=== PATIENT | female | born 1960 | race Caucasian/White ===

== ENCOUNTER 2017-11-13 02:16 | Emergency (ER) | payer BC, OTHER ==
[~2017-11-13] VITALS: Ht 165.1 cm; Wt 53.0 kg
[~2017-11-13 02:16] MED LIST: ALBU6.7H INH; ATOR10 PO; DOXY100T PO; PRED20 PO
[2017-11-13] MEDS ORDERED: LOSA25TA PO (02:22)
[2017-11-13 02:23] VITALS: BP 153/84; PULSE 98; RESP 16; TEMP 97.8; O2SAT 99
[2017-11-13 02:31] VITALS: PULSE 99; RESP 18; O2SAT 100
[2017-11-13 02:34] VITALS: O2SAT 100
[2017-11-13 02:50] LABS: BASOPHIL % 0.5 % (0.0-2.0); EOSINOPHIL % 0.5 % (0.0-4.0); HEMOGLOBIN 15.6 GM/DL (11.6-15.3); LYMPH % 14.9 % (9.0-44.0); LYMPHOCYTE # 1.4 TH/MM3 (1.0-4.8); MEAN CELL VOLUME 99.9 FL (80.0-100.0); MEAN CORPUSCULAR HEMOGLOBIN 35.4 PG (27.0-34.0); MEAN CORPUSCULAR HGB CONC 35.5 % (32.0-36.0); MEAN PLATELET VOLUME 6.6 FL (7.0-11.0); MONO % 11.7 % (0.0-8.0); MONOCYTE # 1.1 TH/MM3 (0-0.9); NEUT % 72.4 % (16.0-70.0); PLATELET COUNT 288 TH/MM3 (150-450); RED BLOOD COUNT 4.41 MIL/MM3 (4.00-5.30); RED CELL DISTRIBUTION WIDTH 13.2 % (11.6-17.2); WHITE BLOOD COUNT 9.7 TH/MM3 (4.0-11.0)
--- NOTE | 2017-11-13 02:55 | RADRPT ---
EXAM DATE/TIME: 11/13/2017 02:39 [place] COMPARISON: No previous studies available for comparison. INDICATIONS : Chest pain. MEDICAL HISTORY : Hiatal hernia. Hypertension SURGICAL HISTORY : None. ENCOUNTER: Initial ACUITY: 4 - 6 days PAIN SCORE: 8/10 LOCATION: Left chest posterior FINDINGS: A single view of the chest demonstrates the lungs to be symmetrically aerated without evidence of mas s, infiltrate or effusion. The cardiomediastinal contours are unremarkable. Osseous structures are intact. CONCLUSION: No acute disease. Madhu Frazier Jr., MD on November 13, 2017 at 2:53 Board Certified Radiologist. This report was verified electronically.
[2017-11-13 03:00] LABS: BICARBONATE 27.8 MEQ/L (21.0-32.0); BLOOD UREA NITROGEN 6 MG/DL (7-18); CALCIUM 9.2 MG/DL (8.5-10.1); CHLORIDE 98 MEQ/L (98-107); CREATININE 0.63 MG/DL (0.50-1.00); GLOMERULAR FILTRATION RATE 97 ML/MIN (>89); GLUCOSE,RANDOM 115 MG/DL (74-106); SODIUM (NA) 133 MEQ/L (136-145)
[2017-11-13] MEDS ORDERED: NITROGLYCERIN 2% OINT 1 GM PACKET TOPICAL ONE (03:00)
[2017-11-13] MEDS ORDERED: FAMOTIDINE 20 MG/2 ML VIAL IV PUSH SCH (03:00)
[2017-11-13] MEDS ORDERED: ASPIRIN 81 MG CHEW TAB CHEW ONE (03:00)
[2017-11-13 03:04] LABS: TROPONIN I LESS THAN 0.02 NG/ML (0.02-0.05)
[2017-11-13 03:14] VITALS: BP 156/104; PULSE 91; RESP 18; O2SAT 99
[2017-11-13 03:18] LABS: ALBUMIN 3.9 GM/DL (3.4-5.0); ALT (GPT) 17 U/L (10-53); AST (GOT) 16 U/L (15-37); DIRECT BILIRUBIN ADULT 0.2 MG/DL (0.0-0.2)
[2017-11-13 03:19] LABS: ALKALINE PHOSPHATASE 100 U/L (45-117); INDIRECT BILIRUBIN 0.7 MG/DL (0.0-0.8); TOTAL BILIRUBIN ADULT 0.9 MG/DL (0.2-1.0); TOTAL PROTEIN 7.6 GM/DL (6.4-8.2)
[2017-11-13] MEDS ORDERED: KETOROLAC TROMETHAMINE 30 MG/ML (IVP) VIAL IV PUSH ONE (03:30)
--- NOTE | 2017-11-13 03:48 | PD ---
HPI Chief Complaint: Chest Pain Time Seen by Provider: 02:35 Travel History International Travel<30 days: No Contact w/Intl Traveler<30days: No Traveled to known affect area: No History of Present Illness HPI Patient is a 57-year-old female who is coming to the ER saying that she has been having epigastric pain and left shoulder pain. She thinks it is related to stress she says she works 7 days a week. She says she is worked every day since October 09 and that day she took off because of the day her brother . She denies pressure-like pain she says it is localized to her left scapula area reproducible made worse with movement as well as lying down. She also says that she did have epigastric pain off and on over the last few days but she says she ate a whole thing of cashews and there is salty and then she knows she has epigastric pain. She takes omeprazole to help alleviate the symptoms which helped mildly in the ER she has no epigastric pain it is all left shoulder pain. She has left bundle branch block on her EKG at a rate of 96 she has no history or knowledge of prior left bundle branch block but she denies any heaviness or left chest pain. She is convinced this is all stress related shoulder pain she took a 1 Motrin with minimal relief and then that wore off and she says the pain continues she feels it is related to work stress as well as physical injury. She has not seen another doctor for this she has not seen a doctor in many years prior to coming to the ER tonight for this left shoulder. [facility] Past Medical History Hypertension: Yes Influenza Vaccination: No Past Surgical History Mastectomy: Yes (RIGHT BREAST) Social History Alcohol Use: Yes Tobacco Use: Yes Substance Use: No Allergies-Medications (Allergen,Severity, Reaction): Coded Allergies: No Known Allergies (Unverified Adverse Reaction, Unknown, 11/13/17) Reported Meds & Prescriptions Reported Meds & Active Scripts Active Ibuprofen 600 Mg Tab 600 Mg PO Q6H PRN Valium (Diazepam) 5 Mg Tab 5 Mg PO TID PRN Reported Losartan (Losartan Potassium) 25 Mg Tab 25 Mg PO EVERY OTHER DAY Review of Systems Except as stated in HPI: all other systems reviewed are Neg Physical Exam Narrative GENERAL: SKIN: Warm and dry. HEAD: Atraumatic. Normocephalic. EYES: Pupils equal and round. No scleral icterus. No injection or drainage. ENT: No nasal bleeding or discharge. Mucous membranes pink and moist. NECK: Trachea midline. No JVD. CARDIOVASCULAR: Regular rate and rhythm. BACK reproducible Left scaapula area pain RESPIRATORY: No accessory muscle use. Clear to auscultation. Breath sounds equal bilaterally. GASTROINTESTINAL: Abdomen soft, non-tender, nondistended. Hepatic and splenic margins not palpable. MUSCULOSKELETAL: Extremities without clubbing, cyanosis, or edema. No obvious deformities. NEUROLOGICAL: Awake and alert. No obvious cranial nerve deficits. Motor grossly within normal limits. Five out of 5 muscle strength in the arms and legs. Normal speech. PSYCHIATRIC: Appropriate mood and affect; insight and judgment normal. Data Data Last Documented VS Orders Orders Electrocardiogram (11/13/17 02:33) Complete Blood Count With Diff (11/13/17 02:33) Basic Metabolic Panel (Bmp) (11/13/17 02:33) Ckmb (Isoenzyme) Profile (11/13/17 02:33) Troponin I (11/13/17 02:33) Chest, Single Ap (11/13/17 02:33) Iv Access Insert/Monitor (11/13/17 02:33) Ecg Monitoring (11/13/17 02:33) Oxygen Administration (11/13/17 02:33) Oximetry (11/13/17 02:33) Aspirin Chew (Aspirin Chew) (11/13/17 03:00) Nitroglycerin 2% Oint (Nitroglycerin 2% (11/13/17 03:00) Famotidine Inj (Pepcid Inj) (11/13/17 03:00) Hepatic Functional Panel (11/13/17 02:35) Ketorolac Inj (Toradol Inj) (11/13/17 03:30) Ed Discharge Order (11/13/17 06:55) Labs Laboratory Tests Test 11/13/17 02:35 White Blood Count 9.7 TH/MM3 Red Blood Count 4.41 MIL/MM3 Hemoglobin 15.6 GM/DL Hematocrit 44.0 % Mean Corpuscular Volume 99.9 FL Mean Corpuscular Hemoglobin 35.4 PG Mean Corpuscular Hemoglobin Concent 35.5 % Red Cell Distribution Width 13.2 % Platelet Count 288 TH/MM3 Mean Platelet Volume 6.6 FL Neutrophils (%) (Auto) 72.4 % Lymphocytes (%) (Auto) 14.9 % Monocytes (%) (Auto) 11.7 % Eosinophils (%) (Auto) 0.5 % Basophils (%) (Auto) 0.5 % Neutrophils # (Auto) 7.0 TH/MM3 Lymphocytes # (Auto) 1.4 TH/MM3 Monocytes # (Auto) 1.1 TH/MM3 Eosinophils # (Auto) 0.0 TH/MM3 Basophils # (Auto) 0.0 TH/MM3 CBC Comment DIFF FINAL Differential Comment Blood Urea Nitrogen 6 MG/DL Creatinine 0.63 MG/DL Random Glucose 115 MG/DL Total Protein 7.6 GM/DL Albumin 3.9 GM/DL Calcium Level 9.2 MG/DL Alkaline Phosphatase 100 U/L Aspartate Amino Transf (AST/SGOT) 16 U/L Alanine Aminotransferase (ALT/SGPT) 17 U/L Total Bilirubin 0.9 MG/DL Direct Bilirubin 0.2 MG/DL Sodium Level 133 MEQ/L Potassium Level 4.2 MEQ/L Chloride Level 98 MEQ/L Carbon Dioxide Level 27.8 MEQ/L Anion Gap 7 MEQ/L Estimat Glomerular Filtration Rate 97 ML/MIN Indirect Bilirubin 0.7 MG/DL Total Creatine Kinase 84 U/L Troponin I LESS THAN 0.02 NG/ML [facility] Medical Decision Making Medical Screen Exam Complete: Yes Emergency Medical Condition: Yes Medical Record Reviewed: Yes Differential Diagnosis gerd and arthritis vs left chest pain and referred left arm to shoulder pain of ischenmic cardiac disease vs gastritiis GB disease or other Narrative Course Pt has LBBB but no prior EKG in her medical EHR chart that I could find , pt trop negative and GI cocktail and pepcid IV cured her pain and I feel it is gastritis and muscle pain of arm not Ischemic CP and referred pain Diagnosis Primary Impression: Muscle ache Patient Instructions: General Instructions, Muscle Spasm (ED) Scripts Ibuprofen (Ibuprofen) 600 Mg Tab 600 MG PO Q6H Y for Pain/Inflammation, #20 TAB 0 Refills Prov: Balwinder Knox MD 11/13/17 Diazepam (Valium) 5 Mg Tab 5 MG PO TID Y for MUSCLE SPASM, #15 TAB 0 Refills Prov: Balwinder Knox MD 11/13/17 Disposition: 01 DISCHARGE HOME Condition: Good Balwinder Knox MD November 13, 2017 03:48
[2017-11-13 03:53] VITALS: BP 167/70; PULSE 91; RESP 18; O2SAT 100
[2017-11-13 05:13] VITALS: BP 147/67; PULSE 80; RESP 18; O2SAT 99
[2017-11-13] MEDS ORDERED: IBUP-232 PO (06:45)
[2017-11-13] MEDS ORDERED: DIAZ5 PO (06:45)
--- NOTE | 2017-11-13 12:20 | EKG ---
Date Performed: 11/13/2017 Time Performed: 02:32:29 PTAGE: 57 years EKG: Sinus rhythm POSSIBLE LEFT ATRIAL ENLARGEMENT LEFT BUNDLE BRANCH BLOCK ABNORMAL ECG NO PREVIOUS TRACING DOCTOR: Romero Joseph Interpretating Date/Time 11/13/2017 12:17:09
== END 2017-11-13 06:58 | disposition home or self-care (01) ==
LOC: NEPE 02:16
DX: M79.1 Myalgia (principal); I10 Essential (primary) hypertension; Z72.0 Tobacco use
CPT/HCPCS: 71045; 80048; 80076; 82550; 84484; 85025; 93005; 96374; 96375; 99285; J1885

== ENCOUNTER 2017-12-10 02:34 | Emergency (ER) | payer OTHER ==
[~2017-12-10 02:34] MED LIST changes: -ALBU6.7H INH; -ATOR10 PO; +DIAZ5 PO; -DOXY100T PO; +IBUP-232 PO; +LOSA25TA PO; -PRED20 PO
[2017-12-10 02:36] VITALS: BP 130/89; PULSE 152; RESP 27; TEMP 97.2; O2SAT 96
--- NOTE | 2017-12-10 03:52 | PD ---
HPI . Cough Chief Complaint: Respiratory Distress Time Seen by Provider: 03:04 Travel History International Travel<30 days: No Contact w/Intl Traveler<30days: No Traveled to known affect area: No History of Present Illness HPI Patient is a 57-year-old female who suddenly short of breath she is with her who is deteriorating from cirrhosis of the liver he is jaundiced and he is in our ER she went from his room felt short of breath dizzy came to triage and is triaged into the exam room. She smokes cigarettes a pack a day, reports that she feels short of breath when she is walking and then becomes rapidly short of breath feels like the room is spinning , feels dizzy . denies chest pain, denies nausea, no vomiting, no diarrhea, no dysuria.. In the ER she is leaning forward looking short of breath, however her lungs are clear to auscultation on initial exam. no tachypnea , PFSH Past Medical History Cancer: Yes Chemotherapy: Yes Diminished Hearing: No Hypertension: Yes Respiratory: Yes Menopausal: Yes Past Surgical History Mastectomy: Yes (RIGHT BREAST) Social History Alcohol Use: Yes (SOMETIMES) Tobacco Use: Yes Substance Use: No Allergies-Medications (Allergen,Severity, Reaction): Coded Allergies: No Known Allergies (Unverified Adverse Reaction, Unknown, 12/10/17) Reported Meds & Prescriptions Reported Meds & Active Scripts Active Atrovent HFA 12.9 GM Inh (Ipratropium [place]) 17 Mcg/Actuation Aer 2 Puff INH Q6HR PRN Azithromycin 250 Mg Tab 250 Mg PO DIRECTED Take 2 tabs (500 mg) on day 1 then 1 tab daily x 4 days. Ibuprofen 600 Mg Tab 600 Mg PO Q6H PRN Reported Losartan (Losartan Potassium) 25 Mg Tab 25 Mg PO EVERY OTHER DAY Review of Systems Except as stated in HPI: all other systems reviewed are Neg Physical Exam Narrative GENERAL: appears SOB leaning forward in chair in Exam room SKIN: Warm and dry. HEAD: Atraumatic. Normocephalic. EYES: Pupils equal and round. No scleral icterus. No injection or drainage. ENT: No nasal bleeding or discharge. Mucous membranes pink and moist. NECK: Trachea midline. No JVD. CARDIOVASCULAR: Regular rate and rhythm. RESPIRATORY: No accessory muscle use. Clear to auscultation. Breath sounds equal bilaterally. no wheeze heard .. GASTROINTESTINAL: Abdomen soft, non-tender, nondistended. Hepatic and splenic margins not palpable. MUSCULOSKELETAL: Extremities without clubbing, cyanosis, or edema. No obvious deformities. NEUROLOGICAL: Awake and alert. No obvious cranial nerve deficits. Motor grossly within normal limits. Five out of 5 muscle strength in the arms and legs. Normal speech. PSYCHIATRIC: Aappear anxious and SOB Data Data Last Documented VS Orders Orders Chest, Pa & Lat (12/10/17 ) Ipratropium Neb (Atrovent Neb) (12/10/17 04:00) Lorazepam (Ativan) (12/10/17 04:00) Azithromycin (Zithromax) (12/10/17 05:45) Ipratropium Neb (Atrovent Neb) (12/10/17 06:00) Ed Discharge Order (12/10/17 06:24) [facility] Medical Decision Making Medical Screen Exam Complete: Yes Emergency Medical Condition: Yes Medical Record Reviewed: Yes Differential Diagnosis Cough vs URI vs PNA vs PTX vs Bronchitis other Narrative Course Pt has small pleural effusion right base slight in Left cough , feels better after Atrovent Neb coughing up phlegm , reports feels she is able to expectorate now. Azithromycin given for viral bronchitis with possible small infectious effusion Diagnosis Primary Impression: SOB (shortness of breath) Additional Impressions: Bronchitis Pleural effusion Patient Instructions: Acute Bronchitis (ED), Acute Cough (ED), General Instructions Scripts Ipratropium HFA 12.9 GM Inh (Atrovent HFA 12.9 GM Inh) 17 Mcg/Actuation Aer 2 PUFF INH Q6HR Y for SHORTNESS OF BREATH, #1 INHALER 0 Refills Prov: Balwinder Knox MD 12/10/17 Azithromycin (Azithromycin) 250 Mg Tab 250 MG PO DIRECTED for Infection, #6 TAB 0 Refills Take 2 tabs (500 mg) on day 1 then 1 tab daily x 4 days. Prov: Balwinder Knox MD 12/10/17 Disposition: 01 DISCHARGE HOME Condition: Good Balwinder Knox MD Dec 10, 2017 03:52
[2017-12-10] MEDS ORDERED: RESP: IPRATROPIUM 0.5 MG/2.5 ML NEB NEB ONE ×2 (04:00→06:00)
[2017-12-10] MEDS ORDERED: LORazepam 0.5 MG TAB PO ONE (04:00)
--- NOTE | 2017-12-10 05:43 | RADRPT ---
EXAM DATE: 12/10/2017 5:31 AM EDT AGE/SEX: 57 years / Female INDICATIONS: Shortness of breath. CLINICAL DATA: This is the patient's initial encounter. Patient reports that signs and symptoms have been present for 1 day and indicates a pain score of 0/10. MEDICAL/SURGICAL HISTORY: Carcinoma, breast. Mastectomy, right. COMPARISON: [facility] [place], CHEST SINGLE AP, 11/13/2017. . FINDINGS: PA and lateral views of the chest. Small pleural effusions bilaterally. Moderate cardiac silhouette e nlargement, more prominent than on the comparison study. No carie pulmonary edema or focal consolidat ion. No evidence of pneumothorax. Right axillary clips. CONCLUSION: 1. Small bilateral pleural effusions. 2. Moderate cardiac silhouette enlargement. Electronically signed by: Les High MD 12/10/2017 5:42 AM EDT
[2017-12-10] MEDS ORDERED: AZITHROMYCIN 250 MG TAB PO ONE (05:45)
[2017-12-10 05:56] VITALS: BP 112/78; PULSE 115; RESP 18; O2SAT 96
[2017-12-10] MEDS ORDERED: IPRA17I INH (06:25)
[2017-12-10] MEDS ORDERED: AZIT250T3 PO (06:25)
== END 2017-12-10 06:37 | disposition home or self-care (01) ==
LOC: NEPE 02:34
DX: R06.02 Shortness of breath (principal); J40 Bronchitis, not specified as acute or chronic; J90 Pleural effusion, not elsewhere classified; I10 Essential (primary) hypertension; F17.210 Nicotine dependence, cigarettes, uncomplicated; Z85.3 Personal history of malignant neoplasm of breast; Z92.21 Personal history of antineoplastic chemotherapy; Z79.899 Other long term (current) drug therapy
CPT/HCPCS: 71046; 94640; 94664; 99283; J7644

== ENCOUNTER 2018-01-07 20:48 | Inpatient (IN) ==
[2018-01-07] MEDS ORDERED: RESP: Levalbuterol 1.25 MG/3 ML Neb (SCH) NEB ONE (22:00)
--- NOTE | 2018-01-07 22:01 | ED ---
HPI General Chief complaint: Respiratory Symptoms Stated complaint: Gen medical Time Seen by Provider: 01/07/18 21:46 Source: patient Mode of arrival: EMS Limitations: other (respiratory distress) History of Present Illness HPI narrative: 57yF presenting with respiratory distress. The patient states that she's had a cough for the past several days, was seen by her PMD and is supposed to get an outpatient CXR later this week for presumed bronchitis. She states that this evening she began to have shortness of breath and worsening cough so she called EMS. Further details of HPI limited due to respiratory distress. Unable to obtain family history due to respiratory distress. Related Data Home Medications Medication Instructions Recorded Confirmed albuterol sulfate [ProAir HFA] 2 puff INHALATION Q4-6H PRN 01/07/18 01/07/18 hydrochlorothiazide 25 mg PO DAILY 01/07/18 01/07/18 losartan 25 mg PO DAILY 01/07/18 01/07/18 Allergies Allergy/AdvReac Type Severity Reaction Status Date / Time No Known Allergies Allergy Unverified 01/07/18 21:46 Review of Systems ROS Unobtainable other (limited secondary to respiratory distress except as noted in HPI) [facility] Medical History Medical History High blood pressure (Acute) Surgical History Surgical History H/O right mastectomy (Acute) Social History Social History Substance History: No History of Abuse Second Hand Smoke Exposure: No Smoking Status: Former smoker Tobacco Type: Cigarettes How Often Do You Have a Drink Containing Alcohol: Never Recent Travel in [facility] within the Last 8 Weeks: No Recent Out of Country Travel within the Last 8 Weeks: No Immunization History Tetanus Immunization: Unsure Hx Influenza Vaccine This Season: No Exam Const General: acute distress and ill appearing Other: Tremulous, appear anxious HENMT Head: normocephalic and atraumatic Throat: posterior oropharynx normal Eyes Pupils: PERRL Resp Other: Moderate to severe respiratory distress (+) accessory muscle use and increased work of breathing Speaking in 3-4 word phrases with some difficulty O2 sats low 90s on room air Diminished breath sounds at bases with expiratory wheezing in upper lung virk bilaterally Cardio Rate: tachycardic Rhythm: regular rhythm GI Palpation: soft and nontender Skin General: no rashes or lesions noted Neuro General: alert, awake and oriented x3 Extrem Other: 1+ pitting edema above the ankles bilaterally Course Initial Documented Vital Signs Temperature 97.7 F 01/07/18 21:37 Pulse Rate 128 H 01/07/18 21:37 Respiratory Rate 30 H 01/07/18 21:37 Pulse Oximetry 92 L 01/07/18 21:37 Last Documented Vital Signs Temperature 97.7 F 01/07/18 21:37 Pulse Rate 96 H 01/07/18 22:20 Respiratory Rate 18 01/07/18 22:20 Blood Pressure 134/82 01/07/18 21:49 Pulse Oximetry 95 01/07/18 21:49 Critical Care Time Critical Care Time: Yes Total Critical Care Time: 32 Attestation: Total critical care time 32 minutes. This includes examining and stabilizing the patient, gathering a history from a source other than the patient (i.e., chart review, EMS), formulating a differential diagnosis, ordering and interpreting laboratory tests and EKG, ordering and interpreting radiology tests, discussing the patient's care with other providers (critical care), and re-evaluating the patient at frequent intervals. Medical Decision Making MDM Narrative Medical decision making narrative: Assessment: 57yF presenting with respiratory distress Plan: EKG and monitor Nebs CXR Labs, including trop/ BNP Patient declining steroids at this time as "last time it made me sick for days and my legs swelled up" Reassess Addendum: Patient found to have profound hyponatremia/ hypochloremia, pleural effusions, and continued respiratory distress (although improved since arrival) . This patient cannot go home as she is at extremely high risk for decompensation, including seizure, coma, and secondary to hyponatremia; she will need to be monitored in a critical care setting, have her electrolytes slowly corrected, and be re-evaluated at frequent intervals. I told the patient the results of all labs and imaging as well as plan to keep her in the hospital ; she understands and agrees. Case discussed with Dr. Delgado of critical care. Differential Diagnosis Differential Diagnosis: Differential diagnosis includes, but is not limited to: pneumonia, COPD exacerbation, bronchitis, CHF/ pulmonary edema, pleural effusions, lower suspicion for PE Lab Data Lab results reviewed: Yes I reviewed the patient's lab results. Result diagrams: 01/07/18 21:59 01/07/18 21:59 Lab Results 01/07/18 01/07/18 01/07/18 Range/Units 21:59 21:59 21:59 WBC 15.9 H (4.0-11.0) th/mm3 RBC 4.60 (4.00-5.30) mil/mm3 Hgb 14.9 (11.6-15.3) gm/dL Hct 43.3 (35.0-46.0) % MCV 94.3 (80.0-100.0) fL MCH 32.4 (27.0-34.0) pg MCHC 34.4 (32.0-36.0) % RDW 15.6 (11.6-17.2) % Plt Count 337 (150-450) th/mm3 MPV 6.8 L (7.0-11.0) fL Neut % (Auto) 87.2 H (16.0-70.0) % Lymph % (Auto) 4.0 L (9.0-44.0) % [place] % (Auto) 8.5 H (0.0-8.0) % Eos % (Auto) 0.1 (0.0-4.0) % Baso % (Auto) 0.2 (0.0-2.0) % Neut # (Auto) 13.9 H (1.8-7.7) th/mm3 Lymph # (Auto) 0.6 L (1.0-4.8) th/mm3 [place] # (Auto) 1.4 H (0.0-0.9) th/mm3 Eos # (Auto) 0.0 (0.0-0.4) th/mm3 Baso # (Auto) 0.0 (0.0-0.2) th/mm3 WBC Differential . Differential Comment Auto diff final Sodium 109 L* (136-145) meq/L Potassium 3.0 L (3.5-5.1) meq/L Chloride 65 L (98-107) meq/L Carbon Dioxide 25.7 (21.0-32.0) meq/L Anion Gap 18 H (5-15) meq/L BUN 6 L (7-18) mg/dL Creatinine 0.66 (0.50-1.00) mg/dL Estimated GFR Greater than 89 (>89) mL/min Random Glucose 113 H (74-106) mg/dL Calcium 8.4 L (8.5-10.1) mg/dL Troponin I Less than 0.02 L (0.02-0.05) ng/mL B-Natriuretic Peptide 2260 H (0-100) pg/mL Imaging Data Radiologist's impression: ITS Impressions Chest X-Ray 01/07/18 21:50 CONCLUSION: Persistent bibasilar opacities representing small pleural effusions with associated volume loss and/or airspace consolidation. These changes have mildly increased from the prior study from 1 month ago. ECG Data Interpretation: Rate: 98 BPM Rhythm: Sinus [place]: Left Intervals: Complete LBBB, QTc 493 ms Q waves: III, aVF, V2 T waves: Inverted in V5 Impression: Abnormal EKG, complete left bundle, no changes as compared to EKG from 11/13/2017. Discharge Plan Discharge Disposition Patient Disposition: 30 Still Patient Discharge Condition Condition: Critical Discharge Details Diagnosis: Acute hyponatremia, Acute respiratory distress, Hypochloremia, Pleural effusion , High anion gap metabolic acidosis, Edema, pitting Physicians Team ED Provider: [place] Primary Care Provider: Rupesh Johansen Attending Provider: Frantz Delgado Rxs /Orders / Referrals /Forms Prescriptions: No Action losartan 25 mg Tablet 25 mg PO DAILY RF: 0 hydrochlorothiazide 25 mg Tablet 25 mg PO DAILY RF: 0 albuterol sulfate [ProAir HFA] 90 mcg/actuation Hfa Aerosol Inhaler 2 puff INHALATION Q4-6H PRN (Reason: Respiratory Distress) RF: 0 Discharge Interventions Interventions: Vital Signs Last Done: 01/07/18 21:49 Status ED Status: Admitted Patient
--- NOTE | 2018-01-07 22:14 | XR ---
EXAM DATE: 01/07/2018 10:09 PM EDT AGE/SEX: 57 years / Female INDICATIONS: Short of breath. CLINICAL DATA: This is the patient's initial encounter. Patient reports that signs and symptoms have been present for 1 day and indicates a pain score of 4/10. MEDICAL/SURGICAL HISTORY: . Carcinoma, breast. Mastectomy, right. COMPARISON: [facility] [place], CHEST PA & LAT, 12/10/2017. . FINDINGS: Single AP view of the chest demonstrates a normal-sized cardiac silhouette. EKG lines overlie the pat ient. Lungs are underinflated with bibasilar pleural-parenchymal opacities slightly larger than on th e prior study. No pneumothorax is identified. The bones demonstrate no acute finding. CONCLUSION: Persistent bibasilar opacities representing small pleural effusions with associated volume loss and/o r airspace consolidation. These changes have mildly increased from the prior study from 1 month ago. Electronically signed by: Neo Geronimo MD 01/07/2018 10:13 PM EDT
[2018-01-07 22:17] LABS: Baso % (Auto) 0.2 % (0.0-2.0); Eos % (Auto) 0.1 % (0.0-4.0); Hematocrit 43.3 % (35.0-46.0); Hemoglobin 14.9 gm/dL (11.6-15.3); Lymph # (Auto) 0.6 th/mm3 (1.0-4.8); Mean Corpuscular HGB Conc 34.4 % (32.0-36.0); Mean Corpuscular Hemoglobin 32.4 pg (27.0-34.0); Mean Corpuscular Volume 94.3 fL (80.0-100.0); Mean Platelet Volume 6.8 fL (7.0-11.0); Mono # (Auto) 1.4 th/mm3 (0.0-0.9); Mono % (Auto) 8.5 % (0.0-8.0); Neut # (Auto) 13.9 th/mm3 (1.8-7.7); Neut % (Auto) 87.2 % (16.0-70.0); Platelet Count 337 th/mm3 (150-450); Red Cell Distribution Width 15.6 % (11.6-17.2); White Blood Count 15.9 th/mm3 (4.0-11.0)
[2018-01-07 22:31] LABS: Anion Gap 18 meq/L (5-15); Blood Urea Nitrogen 6 mg/dL (7-18); Calcium 8.4 mg/dL (8.5-10.1); Carbon Dioxide 25.7 meq/L (21.0-32.0); Chloride 65 meq/L (98-107); Glomerular Filtration Rate Greater Than 89 mL/min (>89); Glucose,Random 113 mg/dL (74-106)
[2018-01-07 22:35] LABS: Sodium 109 meq/L (136-145)
[2018-01-07] MEDS ORDERED: Potassium Chlor 20 mEq Premix 20 MEQ/100 ML PIGGYBACK IV.SIG ONE (22:54)
[2018-01-07] MEDS ORDERED: Bisacodyl 10 MG Supp RECTAL PRN (23:12)
[2018-01-07] MEDS ORDERED: Potassium Phosphate Inj 30 MMOL in Sodium Chlor 0.9% Inj 250 ML IV.SIG PRN (23:12)
[2018-01-07] MEDS ORDERED: Potassium Chlor 20 mEq Premix 20 MEQ/100 ML PIGGYBACK IV.SIG PRN (23:12)
[2018-01-07] MEDS ORDERED: Magnesium Oxide 400 MG Tablet PO PRN (23:12)
[2018-01-07] MEDS ORDERED: Magnesium Sulfate Inj 4 GM in Sodium Chlor 0.9% Inj 92 ML IV.SIG PRN (23:12)
[2018-01-07] MEDS ORDERED: Magnesium Sulfate Inj 2 GM in Sodium Chlor 0.9% Inj 96 ML IV.SIG PRN (23:12)
[2018-01-07] MEDS ORDERED: Potassium Chloride 25 MEQ Effervescent Tablet PO PRN (23:12)
[2018-01-07] MEDS ORDERED: Sodium Phosphate Inj 30 MMOL in Sodium Chlor 0.9% Inj 250 ML IV.SIG PRN (23:12)
[2018-01-07] MEDS ORDERED: Potassium Phosphate 500 MG Soluble Tablet PO PRN ×2 (23:12)
[2018-01-07] MEDS ORDERED: Spironolactone 25 MG Tablet PO ONE (23:22)
--- NOTE | 2018-01-07 23:49 | P.HPCC ---
History of Present Illness Service: Critical Care Medicine Primary Care Physician: Rupesh Johansen Chief Complaint: shortness of breath History of Present Illness: This is a 57-year-old female who presents with worsening respiratory distress and shortness of breath. She endorsed to the ER physician several days of cough and worsening shortness of breath, which was associated with dyspnea on exertion and PND. In the emergency department she was found to have severe life -threatening hyponatremia with a serum sodium of 109. She additionally had a BNP elevated at 2200. She has severe electrolyte abnormalities including hypokalemia with potassium less than 3. Due to concerns over rapid overcorrection, she was very gently initially diuresed with 25 mill grams of p.o. spironolactone and 20 mg of IV Lasix in addition to aggressive electrolyte replacement. However, the patient deteriorated from a restaurant standpoint and was placed initially on BiPAP but went into worsening respiratory failure requiring emergent intubation, see separate procedure note for details. Due to her rapid deterioration, increased aggressive force diuresis was required despite the high risk of rapid overcorrection of sodium. Additionally, free water is absolutely contraindicated in this degree of worsening heart failure, so we have no way of mitigating her rapid sodium rise. I did perform bedside critical care ultrasound which demonstrates a severely depressed LV systolic function less than 20%, no pericardial effusion. Significant left pleural effusion, but again this was not intervened upon given concern for rapid removal of free water and rapid overcorrection of hyponatremia. Remainder of the history and review of systems is unobtainable due to her critical illness and rapid deterioration. Inpatient Certification: I certify that the inpatient services were ordered in accordance with Medicare regulations governing the order. This includes certification that hospital inpatient services are reasonable and necessary and in the case of services not specified as inpatient-only under 42 CFR 419.22(n), that they are appropriately provided as inpatient services in accordance to with the 2-midnight benchmark under 43 CFR 412.3(e) Estimated Total Length of Stay (Days): 7 Plans for Post Hospital Care: Not yet determined Review of Systems unobtainable due to endotracheal tube, unobtainable due to mental status PMFSH - History History Provided By: Patient - Medical / Surgical Hx Neg / Unobtainable Medical Problems Denied: Unable to Obtain Surgical History: Unable to Obtain - Medical History Medical History: Medical History (Last Reviewed 01/07/18 @ 22:14 by Belgica Boston DO) High blood pressure - Surgical History Surgical History: Surgical History (Last Reviewed 01/07/18 @ 22:14 by Belgica Boston DO) H/O right mastectomy - Tobacco History Second Hand Smoke Exposure: No Tobacco Use In Past 30 Days: No Smoking Status: Former smoker Tobacco Type: Cigarettes - Alcohol History How Often Do You Have a Drink Containing Alcohol: Never - Substance Use History Substance History: No History of Abuse - Travel History Recent Travel in the [place] Within the Last 8 Weeks: No Recent Travel Out of the Country Within the Last 8 Weeks: No - Immunization History Tetanus Immunization: Unsure Hx Influenza Vaccine This Season: No Medications and Allergies Active Medications: Active Medications Al Hydroxide/Mg Hydroxide (Milk Of Dimitri Liq) 30 ml PO Q12H PRN PRN Reason: Mild Constipation Albuterol (Duoneb Neb (Prn)) 1 ampul NEB Q2HR NEB PRN PRN Reason: WHEEZING Bisacodyl (Dulcolax Supp) 10 mg RECTAL DAILY PRN PRN Reason: SEVERE CONSITIPATION Chlorhexidine Gluconate (Chlorhexidine 2% Cloth) 3 pack TOPICAL DAILY@0400 ARIAN Stop: 01/13/18 03:59 Chlorhexidine Gluconate (Chlorhexidine 2% Cloth) 3 pack TOPICAL DAILY@0400 PRN PRN Reason: Extra cloth needed Stop: 01/13/18 03:59 Enoxaparin Sodium (Lovenox Inj) 40 mg SQ Q24H ARIAN Famotidine (Pepcid) 20 mg PO BID ARIAN Furosemide (Lasix Inj) 20 mg IV.PUSH ONCE ONE Stop: 01/08/18 03:01 Potassium Chloride (Kcl 20 Meq Premix Inj) 20 meq in 100 mls @ 50 mls/hr IV.SIG ONCE ONE Stop: 01/08/18 00:53 Last Admin: 01/07/18 23:05 Dose: 50 mls/hr Magnesium Sulfate Inj 4 gm/ (Sodium Chloride) 100 mls @ 50 mls/hr IV.SIG UNSCH PRN PRN Reason: For Magnesium 0.9 - 1.1 mg/dL Magnesium Sulfate Inj 2 gm/ (Sodium Chloride) 100 mls @ 50 mls/hr IV.SIG UNSCH PRN PRN Reason: For Magnesium 1.2 - 1.6 mg/dL Potassium Chloride (Kcl 40 Meq Premix Inj) 40 meq in 100 mls @ 25 mls/hr IV.SIG Q2H PRN PRN Reason: For Potassium 2.8 - 3.2 mEq/L Potassium Chloride (Kcl 20 Meq Premix Inj) 20 meq in 100 mls @ 50 mls/hr IV.SIG Q2H PRN PRN Reason: For Potassium 3.3 - 3.5 mEq/L Potassium Chloride (Kcl 40 Meq Premix Inj) 40 meq in 100 mls @ 25 mls/hr IV.SIG UNSCH PRN PRN Reason: For Potassium 3.3 - 3.5 mEq/L Potassium Chloride (Kcl 20 Meq Premix Inj) 20 meq in 100 mls @ 50 mls/hr IV.SIG Q2H PRN PRN Reason: For Potassium 2.8 - 3.2 mEq/L Potassium Phosphate 30 mmol/ (Sodium Chloride) 260 mls @ 42 mls/hr IV.SIG UNSCH PRN PRN Reason: SEE LABEL COMMENTS Sodium Phosphate 30 mmol/ (Sodium Chloride) 260 mls @ 42 mls/hr IV.SIG UNSCH PRN PRN Reason: For Phosphorus < 2.5 mg/dL Lactulose (Lactulose Liq) 30 ml PO DAILY PRN PRN Reason: SEVERE CONSITIPATION Magnesium Oxide (Mag-Ox) 800 mg PO UNSCH PRN PRN Reason: For Magnesium 1.2 - 1.6 mg/dL Ondansetron HCl (Zofran Inj) 4 mg IV.PUSH Q6H PRN PRN Reason: NAUSEA OR VOMITING Potassium Bicarb/Potassium Chloride (K-Lyte Cl Eff) 50 meq PO UNSCH PRN PRN Reason: For Potassium 3.3 - 3.5 mEq/L Potassium Phosphate (K-Phos Original) 2,000 mg PO UNSCH PRN PRN Reason: SEE LABEL COMMENTS Potassium Phosphate (K-Phos Original) 2,000 mg PO Q4H PRN PRN Reason: Phosphorus Less Than 2.5 mg/dL Senna/Docusate Sodium (Yennifer-Colace) 1 tab PO BID ARIAN Sennosides (Senokot) 17.2 mg PO Q12H PRN PRN Reason: Moderate Constipation Sodium Chloride (Ns Flush) 2 ml IV.FLUSH BID ARIAN Sodium Chloride (Ns Flush) 2 ml IV.FLUSH PRN PRN PRN Reason: FLUSH AFTER USING IV ACCESS Allergies Allergy/AdvReac Type Severity Reaction Status Date / Time No Known Allergies Allergy Unverified 01/07/18 21:46 Home Medications Medication Instructions Recorded Confirmed Type albuterol sulfate [ProAir HFA] 2 puff INHALATION Q4-6H PRN 01/07/18 01/07/18 History hydrochlorothiazide 25 mg PO DAILY 01/07/18 01/07/18 History losartan 25 mg PO DAILY 01/07/18 01/07/18 History Results - Labs CBC & Chem 7: 01/07/18 21:59 01/07/18 23:10 Labs: Short CBC 01/07/18 Range/Units 21:59 WBC 15.9 H (4.0-11.0) th/mm3 Hgb 14.9 (11.6-15.3) gm/dL Hct 43.3 (35.0-46.0) % Plt Count 337 (150-450) th/mm3 BMP 01/07/18 21:59 Sodium 109 L* Potassium 3.0 L Chloride 65 L Carbon Dioxide 25.7 BUN 6 L Creatinine 0.66 Calcium 8.4 L Cardiac Enzymes 01/07/18 Range/Units 21:59 Troponin I Less than 0.02 L (0.02-0.05) ng/mL - Imaging Impressions Chest X-Ray 01/07/18 21:50 CONCLUSION: Persistent bibasilar opacities representing small pleural effusions with associated volume loss and/or airspace consolidation. These changes have mildly increased from the prior study from 1 month ago. Exam Vital signs: Vital Signs 01/07/18 21:37 01/07/18 21:49 01/07/18 22:10 Temperature 36.5 C Pulse Rate 128 H 100 H 95 H Respiratory Rate 30 H 28 H 24 Blood Pressure 134/82 Pulse Oximetry 92 L 95 01/07/18 22:20 01/07/18 23:39 Temperature Pulse Rate 96 H 95 H Respiratory Rate 18 20 Blood Pressure 127/78 Pulse Oximetry 99 Intake & Output 01/07/18 01/07/18 01/08/18 06:59 18:59 06:59 Weight 65 kg Narrative: GENERAL: Middle-age female in extremis, in extreme respiratory distress, lying in bed HEENT: Normocephalic. Atraumatic. Pupils equal, round, reactive, conjugate. Mucous membranes are moist NECK: Trachea is midline. JVD above the level of mandible. CHEST: Tachypneic. In severe respiratory distress. Using accessory muscles to breathe. Cyanotic. CARDIOVASCULAR: Tachycardic rate, regular rhythm. Appears sinus by telemetry. ABDOMEN: Soft, nontender, nondistended. No guarding. MUSCULOSKELETAL: Pulses 2+. Anasarca up above the hips. NEUROLOGICAL: RASS +1. In respiratory distress. Moves all extremities. No focal deficits. Bedside critical care echocardiogram: Severely depressed LV systolic function less than 20%. Grossly preserved RV function. No clinically significant valvular lesions. No pericardial effusion. Large left pleural effusion. IVC greater than 2-1/2 cm dilated without respiratory variation. Caprini VTE Risk Assessment Caprini VTE Risk Assessment: Moderate/High Risk (score >= 2) Caprini Risk Assessment Model: Point Value = 1 Point Value = 2 Point Value = 3 Point Value = 5 Age 41-60 Minor surgery BMI > 25 kg/m2 Swollen legs Varicose veins or History of unexplained or recurrent spontaneous Oral contraceptives or hormone replacement Sepsis (< 1 month) Serious lung disease, including pneumonia (< 1 month) Abnormal pulmonary function Acute myocardial infarction Congestive heart failure (< 1 month) History of inflammatory bowel disease Medical patient at bed rest Age 61-74 Arthroscopic surgery Major open surgery (> 45 min) Laparoscopic surgery (> 45 min) Malignancy Confined to bed (> 72 hours) Immobilizing plaster cast Central venous access Age >= 75 History of VTE Family history of VTE Factor V Leiden Prothrombin [id number] Lupus anticoagulant Anticardiolipin antibodies Elevated serum homocysteine Heparin-induced thrombocytopenia Other congenital or acquired thrombophilia Stroke (< 1 month) Elective arthroplasty Hip, pelvis, or leg fracture Acute spinal cord injury (< 1 month) Prophylaxis Regimen: Total Risk Factor Score Risk Level Prophylaxis Regimen 0-1 Low Early ambulation 2 Moderate Order ONE of the following: *Sequential Compression Device (SCD) *Heparin 5000 units SQ BID 3-4 Higher Order ONE of the following medications: *Heparin 5000 units SQ TID *Enoxaparin/Lovenox 40 mg SQ daily (WT < 150 kg, CrCl > 30 mL/min) *Enoxaparin/Lovenox 30 mg SQ daily (WT < 150 kg, CrCl > 10-29 mL/min) *Enoxaparin/Lovenox 30 mg SQ BID (WT < 150 kg, CrCl > 30 mL/min) AND/OR *Sequential Compression Device (SCD) 5 or more Highest Order ONE of the following medications: *Heparin 5000 units SQ TID (Preferred with Epidurals) *Enoxaparin/Lovenox 40 mg SQ daily (WT < 150 kg, CrCl > 30 mL/min) *Enoxaparin/Lovenox 30 mg SQ daily (WT < 150 kg, CrCl > 10-29 mL/min) *Enoxaparin/Lovenox 30 mg SQ BID (WT < 150 kg, CrCl > 30 mL/min) AND *Sequential Compression Device (SCD) Assessment and Plan - Assessment and Plan Plan: Assessment: 57-year-old female with acute systolic CHF exacerbation which is severe with associated severe life-threatening hypervolemic hyponatremia, severe acute hypoxic respiratory failure, severe multiorgan system dysfunction. Very critically ill. Given the severity of her respiratory failure and her CHF exacerbation combined with her severe systolic dysfunction, we must work aggressively towards diuresis in order to improve her cardiac output. This will likely result in rapid overcorrection of her serum hyponatremia. We will make every effort to mitigate this, however free water is contraindicated given the severity of her CHF exacerbation, and we are unable to diurese more slowly given the severity of her decompensation. Plan by systems: Neurologic: Acute metabolic encephalopathy Severe life-threatening hyponatremia Versed infusion to bradycardia seizure threshold in the setting of severe life- threatening hyponatremia Fentanyl infusion for goal RASS -2 Frequent neurochecks Daily sedation vacations Respiratory: Acute hypoxic respiratory failure Acute systolic CHF exacerbation Acute severe pulmonary edema Large bilateral pleural effusion, left greater than right Vent bundle Head of bed elevated Nebs We will hold off on left-sided thoracentesis in an attempt to medicate the amount of free water we removed from the patient. This will likely need to be intervened on before she will successfully from mechanical ventilation No SBT today given the severity of her pulmonary edema Cardiovascular: Severe acute systolic CHF exacerbation Forced diuresis Follow-up formal 2D echocardiogram Unknown if she has a history of cardiomyopathy or not. Given age and other comorbidities, it is more likely nonischemic. Renal: Place Montano -- Strict I/Os FEN/GI: Severe life-threatening hyponatremia Severe hypokalemia Severe hypomagnesemia Severe acute protein calorie malnutrition Severe acute intravascular volume overload Forced diuresis Aggressive Aixa light replacement Serial electrolytes Freewater contraindicated given severe CHF exacerbation Place orogastric tube Start tube feeds Heme/ID: Leukocytosis Likely reactive and secondary to stress response No infectious etiology suspected this time Endocrine: Hyperglycemia of critical illness -- SSI Prophylaxis: GI Prophylaxis Pepcid DVT Prophylaxis -- SCDs Lovenox Lines: 01/08 right radial arterial line 01/08 left subclavian triple-lumen catheter [place] Dispo: Admit ICU. Very critically ill. This patient remains critically ill with one or more organ systems which are or may become a threat to life. I have spent in excess of 86 minutes discontinuously in the care and management of this patient. This time is exclusive of procedures, and includes, but is not limited to, evaluation of the patient, review of the medical record, discussions with family, consultants, nursing staff, or respiratory therapy, and documentation in the medical record. Procedures - Arterial Line Time out performed: Yes Size (Gauge): 20 Technique used: direct puncture technique Post-Procedure: line sutured into place, dry sterile dressing placed Patient tolerated procedure: no complications Complications: none Site: right, radial Additional comments: Procedure: Arterial Line Placement 20-gauge right radial arterial line Diagnosis: Acute CHF exacerbation Indications: Need for serial arterial blood gas sampling Consent: Emergent Description of the Procedure: The right wrist was prepped and draped sterilely. 1% lidocaine was used for local anesthesia. The pulse was located and a needle was advanced into the artery. A 20 gauge, 12 cm catheter was advanced into the artery using a modified Seldinger technique. The catheter was sutured to the skin and a sterile dressing was applied. The catheter was connected to a pressure transducer and an arterial waveform was noted. There were no immediate complications noted. There was minimal EBL. I personally performed the procedure. - Central Line Placement Left SC Time out performed: Yes Patient placed on monitor/pulse ox: Yes MD prep: mask, gown, gloves Central line prep: Chlorhexidine scrub Local anesthesia used: lidocaine 1% Amount of anesthesia used (mL): 5 Ultrasound used for placement: No Central line lumen inserted: triple Post procedure: good blood return, all ports aspirated, flushed, capped, sterile dressing applied Post procedure x-ray: tip of catheter in good position, no pneumothorax seen Patient tolerated procedure: no complications Complications: none Additional comments: Central Line Procedure Note Left subclavian 7 Slovak 20 cm triple-lumen catheter Diagnosis: Severe acute CHF exacerbation Indications: Need for central pressure monitoring and highly potent vasoactive substances Consent: Emergent Anesthesia: Versed IV, lidocaine locally Description of the Procedure: The patient was placed in the supine, mild- Trendelenburg position. The area was prepped and draped sterilely. A 19g needle was inserted under negative pressure aspiration and dark venous blood was obtained. A guidewire was inserted easily without resistance. A small incision was made using a #11 blade. Using a modified Seldinger technique, the dilator and 7 Slovak, 20 cm catheter were advanced over the guidewire without resistance. All ports were aspirated and flushed, and had brisk blood return. The line was secured at the skin using a non-suture StatLock device. A Biopatch and Transparent sterile dressing were applied. There were no immediate complications noted. There was minimal EBL. The patient tolerated the procedure well. Ultrasound guidance was not used for this procedure A Chest x-ray has been ordered. I personally performed the procedure. - Intubation Time out performed: Yes Sedative: versed Paralytic: succinylcholine Laryngoscope: Jeffrey ET tube size: 8 ET tube uncuffed: No Tube secured depth (cm): 23 Tube secured location: teeth Tube placement confirmation: visualized tube passing through cords, equal breath sounds bilaterally, no breath sounds over epigastrium, confirmation by capnometry Patient tolerated procedure: no complications Intubation complications: none Additional comments: Endotracheal Intubation Diagnosis: Acute hypoxic respiratory failure with acute CHF exacerbation Indications: Acute hypoxic respiratory failure Consent: Emergent Anesthesia: Versed 10 mg IV, succinylcholine 100 mg IV Description of the Procedure: The patient was positioned in the sniffing position. Pre-oxygenation was performed using a nonrebreather mask. Anesthesia was induced via rapid sequence. A Jeffrey #4 was used for laryngoscopy and a Grade I view was obtained. A 8.0 cuffed endotracheal tube was inserted atraumatically through the vocal cords. Confirmation of correct endotracheal tube placement was made by equal and bilateral breath sounds and colorimetric CO2 detection. The endotracheal tube was secured at 22.5 cm at the teeth. There were no immediate complications noted. The patient remained hemodynamically stable throughout the procedure. A chest x-ray has been ordered. I personally performed the procedure.
[2018-01-08] MEDS: Enoxaparin Inj 40 MG/0.4 ML Syringe SQ SCH ×2 (00:14→22:57)
[2018-01-08 00:20] LABS: Anion Gap 12 meq/L (5-15); Blood Urea Nitrogen 5 mg/dL (7-18); Calcium 8.1 mg/dL (8.5-10.1); Carbon Dioxide 31.3 meq/L (21.0-32.0); Chloride 66 meq/L (98-107); Glomerular Filtration Rate Greater Than 89 mL/min (>89); Glucose,Random 110 mg/dL (74-106)
[2018-01-08 00:28] LABS: Potassium 2.7 meq/L (3.5-5.1); Sodium 109 meq/L (136-145)
[2018-01-08] MEDS: Potassium Chlor 20 mEq Premix 20 MEQ/100 ML PIGGYBACK IV.SIG PRN ×2 (00:42→21:31)
[2018-01-08] MEDS ORDERED: Magnesium Sulfate Inj 4 GM in Dextrose 5% in Water Inj 100 ML IV.SIG ONE ×2 (01:07)
[2018-01-08] MEDS ORDERED: Succinylcholine Inj 100 MG/5 ML Syringe IV.PUSH ONE (01:08)
[2018-01-08] MEDS ORDERED: Midazolam Inj 5 MG/ML 1 ML Vial IV.PUSH ONE ×2 (01:08→02:27)
[2018-01-08] MEDS ORDERED: Succinylcholine Inj 200 MG/10 ML Vial ONE (01:10)
[2018-01-08] MEDS ORDERED: Midazolam Inj 5 MG/ML 1 ML Vial ONE (01:10)
[2018-01-08] MEDS: Potassium Chlor 40 mEq Premix 40 MEQ/100 ML PIGGYBACK IV.SIG PRN ×2 (02:28→08:00)
--- NOTE | 2018-01-08 02:28 | XR ---
EXAM DATE: 01/08/2018 1:59 AM EDT AGE/SEX: 57 years / Female INDICATIONS: Central line placement. CLINICAL DATA: This is the patient's subsequent encounter. Patient reports that signs and symptoms h ave been present for 1 day and indicates a pain score of Nonresponsive. MEDICAL/SURGICAL HISTORY: Carcinoma, breast. Mastectomy, right. [place] [facility] [place]. . FINDINGS: A single AP view of the chest demonstrates bibasilar densities. Moderate left and small right pleural effusion. Cardiomegaly. Endotracheal tube with tip 2.7 cm above the allie. Nasogastric tube with ti p in stomach. Left subclavian central line with tip in the SVC. No pneumothorax. The cardiomediastina l contours are unremarkable. Osseous structures are intact. CONCLUSION: Bibasilar densities and pleural effusions greater on the left. Electronically signed by: Valentin Mello MD 01/08/2018 2:26 AM EDT
[2018-01-08 02:53] LABS: Bacteria,Urine Rare /hpf; Bilirubin,Urine Negative (Negative); Clarity,Urine Clear (Clear); Color,Urine Yellow (Yellw/Straw); Glucose,Urine (UA) Negative (Negative); Hyaline Casts,Urine 6 /lpf (0-3); Leukocyte Esterase,Urine Negative (Negative); Mucus,Urine Few /lpf (Occasional); Nitrite,Urine Negative (Negative); Specific Gravity,Urine 1.012 (1.002-1.035); Squamous Epithelial Cell,Urine <1 /hpf (0-5)
[2018-01-08] MEDS: fentaNYL 10 mcg/mL Premix Drip 2,500 MCG/250 ML BAG IV.SIG PRN (03:27)
[2018-01-08] MEDS: Midazolam 50 MG/50 ML Inj 50 MG/50 ML BAG IV.CONT PRN ×2 (03:29→16:37)
[2018-01-08] MEDS ORDERED: Chlorhexidine Gluconate 2% 1 Pack (2 Cloths) TOPICAL PRN (04:00)
[2018-01-08 04:05] LABS: Baso % (Auto) 0.2 % (0.0-2.0); Hematocrit 39.6 % (35.0-46.0); Hemoglobin 13.7 gm/dL (11.6-15.3); Lymph # (Auto) 0.3 th/mm3 (1.0-4.8); Lymph % (Auto) 2.2 % (9.0-44.0); Mean Corpuscular HGB Conc 34.7 % (32.0-36.0); Mean Corpuscular Hemoglobin 32.5 pg (27.0-34.0); Mean Corpuscular Volume 93.9 fL (80.0-100.0); Mean Platelet Volume 7.2 fL (7.0-11.0); Mono # (Auto) 0.8 th/mm3 (0.0-0.9); Mono % (Auto) 5.7 % (0.0-8.0); Neut # (Auto) 13.7 th/mm3 (1.8-7.7); Neut % (Auto) 91.9 % (16.0-70.0); Platelet Count 309 th/mm3 (150-450); Red Blood Count 4.22 mil/mm3 (4.00-5.30); Red Cell Distribution Width 15.2 % (11.6-17.2); White Blood Count 14.9 th/mm3 (4.0-11.0)
[2018-01-08 04:23] LABS: Alanine Aminotransferase 19 U/L (10-53); Albumin 2.4 g/dL (3.4-5.0); Alkaline Phosphatase 148 U/L (45-117); Anion Gap 14 meq/L (5-15); Aspartate Aminotransferase 18 U/L (15-37); Blood Urea Nitrogen 6 mg/dL (7-18); Calcium 7.7 mg/dL (8.5-10.1); Carbon Dioxide 25.6 meq/L (21.0-32.0); Chloride 70 meq/L (98-107); Glomerular Filtration Rate Greater Than 89 mL/min (>89); Glucose,Random 157 mg/dL (74-106); Magnesium 2.1 mg/dL (1.5-2.5); Phosphorus 2.9 mg/dL (2.5-4.9); Total Protein 6.3 g/dL (6.4-8.2)
[2018-01-08 04:30] LABS: Potassium 2.5 meq/L (3.5-5.1); Sodium 110 meq/L (136-145)
[2018-01-08] MEDS: Chlorhexidine Gluconate 2% 1 Pack (2 Cloths) TOPICAL SCH (04:44)
[2018-01-08] MEDS: Senna/Docusate Sodium 8.6/50 MG Tablet PO SCH ×2 (09:18→21:00)
[2018-01-08] MEDS: Famotidine 20 MG Tablet PO SCH ×2 (09:18→21:00)
--- NOTE | 2018-01-08 09:57 | P.PNCC ---
Subjective Subjective Remarks/Hospital Course: This is a 57-year-old female who presents with worsening respiratory distress and shortness of breath. She endorsed to the ER physician several days of cough and worsening shortness of breath, which was associated with dyspnea on exertion and PND. In the emergency department she was found to have severe life -threatening hyponatremia with a serum sodium of 109. She additionally had a BNP elevated at 2200. She has severe electrolyte abnormalities including hypokalemia with potassium less than 3. Due to concerns over rapid overcorrection, she was very gently initially diuresed with 25 mill grams of p.o. spironolactone and 20 mg of IV Lasix in addition to aggressive electrolyte replacement. However, the patient deteriorated from a restaurant standpoint and was placed initially on BiPAP but went into worsening respiratory failure requiring emergent intubation, see separate procedure note for details. Due to her rapid deterioration, increased aggressive force diuresis was required despite the high risk of rapid overcorrection of sodium. Additionally, free water is absolutely contraindicated in this degree of worsening heart failure, so we have no way of mitigating her rapid sodium rise. I did perform bedside critical care ultrasound which demonstrates a severely depressed LV systolic function less than 20%, no pericardial effusion. Significant left pleural effusion, but again this was not intervened upon given concern for rapid removal of free water and rapid overcorrection of hyponatremia. Remainder of the history and review of systems is unobtainable due to her critical illness and rapid deterioration. 01/08: Initial therapy has worked well for patient. Her peripheral perfusion has improved in gas exchange is better. At this juncture were obligated to remove several liters of fluid while controlling the rise in serum sodium. Further, it is preferable that we diuresis off her pleural effusions if possible. At this juncture I will add low dose inotropic support in the form of milrinone. We will watch osmolality rise closely and attempt to attenuate the increase. With her poor left ventricle however we do not have the luxury of removing volume over many days. We are going to have to unload her left ventricle more quickly to prevent a sudden from arrhythmia. Objective Vital Signs / I&O: Vital Signs 01/07/18 21:37 01/07/18 21:49 01/07/18 22:10 Temperature 97.7 F Pulse Rate 128 H 100 H 95 H Respiratory Rate 30 H 28 H 24 Blood Pressure 134/82 Pulse Oximetry 92 L 95 01/07/18 22:20 01/07/18 23:39 01/08/18 00:18 Temperature Pulse Rate 96 H 95 H 105 H Respiratory Rate 18 20 30 H Blood Pressure 127/78 198/103 H Pulse Oximetry 99 88 L 01/08/18 00:20 01/08/18 01:06 01/08/18 01:16 Temperature Pulse Rate 115 H 112 H Respiratory Rate 28 H Blood Pressure 167/70 H 174/102 H Pulse Oximetry 99 91 L 100 01/08/18 01:24 01/08/18 01:25 01/08/18 01:44 Temperature Pulse Rate 112 H 120 H Respiratory Rate 16 20 16 Blood Pressure 145/89 H 120/75 Pulse Oximetry 100 100 01/08/18 03:00 01/08/18 03:22 01/08/18 03:48 Temperature Pulse Rate Respiratory Rate 24 20 Blood Pressure Pulse Oximetry 100 100 100 01/08/18 04:00 01/08/18 06:00 01/08/18 08:48 Temperature 96.7 F L Pulse Rate 100 H 87 Respiratory Rate 14 19 Blood Pressure 116/72 Pulse Oximetry 100 100 Intake & Output 01/07/18 01/08/18 01/08/18 18:59 06:59 18:59 Intake Total 200 / 200 Output Total 2550 / 2550 Balance -2350 / -2350 Weight 58.7 kg Intake: IV 200 / 200 KCl 20 mEq Premix Inj 20 meq In 200 / 200 100 ml @ 50 mls/hr IV.SIG Q2H PRN Rx#:[id number] Output: Urine 400 / 400 Urine Amount (Catheter) 2150 / 2150 Indwelling Urethral Catheter 2150 / 2150 Result Diagrams: 01/08/18 03:30 01/08/18 03:30 Objective Remarks: PE: GENERAL: Middle-age female, intubated, lightly sedated. HEENT: Normocephalic. Atraumatic. Pupils equal, round, reactive, conjugate. Mucous membranes are moist NECK: Trachea is midline. JVD with tensely distended veins to the ear. Orotracheal intubation. CHEST: Mechanically ventilated, diffuse crackles, decreased breath sounds left base. CARDIOVASCULAR: Tachycardic rate, regular rhythm. Tensely distended neck veins. ABDOMEN: Soft, nontender, nondistended. No guarding. MUSCULOSKELETAL: Pulses 2+. Anasarca up above the hips. NEUROLOGICAL: RASS -1. Opens eyes to voice, moves 4 limbs to command. Assessment and Plan - Assessment and Plan Plan: Assessment: 57-year-old female with acute systolic CHF exacerbation which is severe with associated severe life-threatening hypervolemic hyponatremia, severe acute hypoxic respiratory failure, severe multiorgan system dysfunction. Very critically ill. Given the severity of her respiratory failure and her CHF exacerbation combined with her severe systolic dysfunction, we must work aggressively towards diuresis in order to improve her cardiac output. This will likely result in rapid overcorrection of her serum hyponatremia. We will make every effort to mitigate this, however free water is contraindicated given the severity of her CHF exacerbation, and we are unable to diurese more slowly given the severity of her decompensation. Plan by systems: Neurologic: Acute metabolic encephalopathy Severe life-threatening hyponatremia Versed infusion to bradycardia seizure threshold in the setting of severe life- threatening hyponatremia Fentanyl infusion for goal RASS -2 Frequent neurochecks Daily sedation vacations Respiratory: Acute hypoxic respiratory failure Acute systolic CHF exacerbation Acute severe pulmonary edema Large bilateral pleural effusion, left greater than right Vent bundle Head of bed elevated Nebs We will hold off on left-sided thoracentesis in an attempt to medicate the amount of free water we removed from the patient. This will likely need to be intervened on before she will successfully from mechanical ventilation No SBT today given the severity of her pulmonary edema Cardiovascular: Severe acute systolic CHF exacerbation Forced diuresis Follow-up formal 2D echocardiogram Unknown if she has a history of cardiomyopathy or not. Given age and other comorbidities, it is more likely nonischemic. Add milrinone for contractility and afterload reduction. Renal: Place [place] -- Strict I/Os FEN/GI: Severe life-threatening hyponatremia Severe hypokalemia Severe hypomagnesemia Severe acute protein calorie malnutrition Severe acute intravascular volume overload Forced diuresis Aggressive [place] light replacement Serial electrolytes [place] contraindicated given severe CHF exacerbation Place orogastric tube Start tube feeds Heme/ID: Leukocytosis Likely reactive and secondary to stress response No infectious etiology suspected this time Endocrine: Hyperglycemia of critical illness -- SSI Prophylaxis: GI Prophylaxis Pepcid DVT Prophylaxis -- SCDs Lovenox Lines: 01/08 right radial arterial line 7/13 left subclavian triple-lumen catheter [place] Overall impression: This woman is critically ill with end-stage acute on chronic systolic heart failure. Etiology unclear but this dilated cardiomyopathy is incompatible with long-term survival. Our immediate admission is to removal of large amounts of excess volume while attenuating the rise of serum sodium. We will make all reasonable attempts to avoid the neurologic sequelae of rapid sodium correction but this woman is in a preterminal state and aggressive volume removal is mandatory. Critical care 50 minutes aside from invasive procedures. Procedures - Arterial Line Size (Gauge): 20
--- NOTE | 2018-01-08 13:11 | ECHRPT ---
Indication: HEART FAILURE CONCLUSIONS Mildly dilated left ventricle. Wall thickness is normal. The left ventricular systolic function is severely reduced with an estimated ejection fraction less than 20%. Trace mitral valve regurgitation. There is trace tricuspid valve regurgitation. The estimated pulmonary arterial pressure is 19.1 mmHg. A right sided pleural effusion is present. A left sided pleural effusion is present. BP: / HR: Rhythm: Sinus MEASUREMENTS (Male / Female) Normal Values Technical Quality:Fair 2D ECHO LV Diastolic Diameter PLAX 6.8 cm 4.2 - 5.9 / 3.9 - 5.3 cm LV Systolic Diameter PLAX 6.5 cm IVS Diastolic Thickness 0.8 cm 0.6 - 1.0 / 0.6 - 0.9 cm LVPW Diastolic Thickness 0.8 cm 0.6 - 1.0 / 0.6 - 0.9 cm LV Relative Wall Thickness 0.2 LVOT Diameter 2.4 cm Aortic Root Diameter 3.2 cm LA Systolic Diameter LX 2.6 cm 3.0 - 4.0 / 2.7 - 3.8 cm M-MODE AV Cusp Separation MM 2.0 cm DOPPLER AV Peak Velocity 110.0 cm/s AV Peak Gradient 4.8 mmHg AV Mean Gradient 3.0 mmHg AV Velocity Time Integral 14.8 cm LVOT Peak Velocity 85.0 cm/s LVOT Peak Gradient 2.9 mmHg LVOT Velocity Time Integral 10.3 cm AV Area Cont Eq vti 3.1 cm AV Area Cont Eq pk 3.5 cm Mitral E Point Velocity 58.2 cm/s Mitral A Point Velocity 70.1 cm/s Mitral E to A Ratio 0.8 LV E' Lateral Velocity 3.2 cm/s Mitral E to LV E' Lateral Ratio 18.2 TR Peak Velocity 151.0 cm/s TR Peak Gradient 9.1 mmHg Right Atrial Pressure 10.0 mmHg Pulmonary Artery Systolic Pressu 19.1 mmHg Right Ventricular Systolic Press 19.1 mmHg PV Peak Velocity 70.7 cm/s PV Peak Gradient 2.0 mmHg FINDINGS LEFT VENTRICLE Mildly dilated left ventricle. Wall thickness is normal. The left ventricular systolic function is severely reduced with an estimated ejection fraction less than 20%. RIGHT VENTRICLE Normal right ventricular size and systolic function. LEFT ATRIUM The left atrial size is normal. RIGHT ATRIUM The right atrial size is normal. ATRIAL SEPTUM No atrial level shunt is demonstrated by color flow Doppler interrogation. AORTA The aortic root and proximal ascending aorta are not well visualized. MITRAL VALVE Trace mitral valve regurgitation. AORTIC VALVE Trileaflet aortic valve. No aortic valve stenosis or regurgitation. TRICUSPID VALVE There is trace tricuspid valve regurgitation. The estimated pulmonary arterial pressure is 19.1 mmHg. PULMONARY VALVE No pulmonary valve regurgitation or stenosis. VESSELS The inferior vena cava is normal in size. PERICARDIUM A right sided pleural effusion is present. A left sided pleural effusion is present. Nicolas Mcintosh MD (Electronically Signed) Final Date:08 January 2018 13:09
[2018-01-08] MEDS: Milrinone Inj 20 MG in Sodium Chlor 0.9% Inj 80 ML IV.CONT SCH (16:20)
--- NOTE | 2018-01-08 19:23 | ECG ---
Date Performed: 01/07/2018 Time Performed: 21:47:19 PTAGE: 57 years EKG: Sinus rhythm POSSIBLE LEFT ATRIAL ENLARGEMENT LEFT BUNDLE BRANCH BLOCK ABNORMAL ECG INTERPRETATION BASED ON A DEF SORAYA AGE OF 39 YEARS NO PREVIOUS TRACING DOCTOR: Puma De Jesus Interpretating Date/Time 01/08/2018 19:21:38
[2018-01-08] MEDS ORDERED: Potassium Chlor 40 mEq Premix 40 MEQ/100 ML PIGGYBACK IV.SIG PRN (21:35)
[2018-01-08] MEDS ORDERED: Albumin Human 25% Inj 100 ML IV.SIG ONE (23:06)
[2018-01-09] MEDS: Potassium Chlor 20 mEq Premix 20 MEQ/100 ML PIGGYBACK IV.SIG PRN ×2 (01:29→03:35)
[2018-01-09 06:25] LABS: Albumin 2.9 g/dL (3.4-5.0); Anion Gap 13 meq/L (5-15); Blood Urea Nitrogen 7 mg/dL (7-18); Calcium 8.6 mg/dL (8.5-10.1); Carbon Dioxide 29.1 meq/L (21.0-32.0); Chloride 88 meq/L (98-107); Glomerular Filtration Rate Greater Than 89 mL/min (>89); Glucose,Random 108 mg/dL (74-106); Phosphorus 2.2 mg/dL (2.5-4.9); Potassium 3.7 meq/L (3.5-5.1); Sodium 130 meq/L (136-145)
[2018-01-09] MEDS: Chlorhexidine Gluconate 2% 1 Pack (2 Cloths) TOPICAL SCH (06:34)
[2018-01-09] MEDS: Midazolam 50 MG/50 ML Inj 50 MG/50 ML BAG IV.CONT PRN ×2 (07:45→16:41)
[2018-01-09] MEDS: Senna/Docusate Sodium 8.6/50 MG Tablet PO SCH ×2 (08:23→20:28)
[2018-01-09] MEDS: Milrinone Inj 20 MG in Sodium Chlor 0.9% Inj 80 ML IV.CONT SCH (08:23)
[2018-01-09] MEDS: Famotidine 20 MG Tablet PO SCH ×2 (08:23→20:28)
--- NOTE | 2018-01-09 08:40 | P.PNCC ---
Subjective Subjective Remarks/Hospital Course: This is a 57-year-old female who presents with worsening respiratory distress and shortness of breath. She endorsed to the ER physician several days of cough and worsening shortness of breath, which was associated with dyspnea on exertion and PND. In the emergency department she was found to have severe life -threatening hyponatremia with a serum sodium of 109. She additionally had a BNP elevated at 2200. She has severe electrolyte abnormalities including hypokalemia with potassium less than 3. Due to concerns over rapid overcorrection, she was very gently initially diuresed with 25 mill grams of p.o. spironolactone and 20 mg of IV Lasix in addition to aggressive electrolyte replacement. However, the patient deteriorated from a restaurant standpoint and was placed initially on BiPAP but went into worsening respiratory failure requiring emergent intubation, see separate procedure note for details. Due to her rapid deterioration, increased aggressive force diuresis was required despite the high risk of rapid overcorrection of sodium. Additionally, free water is absolutely contraindicated in this degree of worsening heart failure, so we have no way of mitigating her rapid sodium rise. I did perform bedside critical care ultrasound which demonstrates a severely depressed LV systolic function less than 20%, no pericardial effusion. Significant left pleural effusion, but again this was not intervened upon given concern for rapid removal of free water and rapid overcorrection of hyponatremia. Remainder of the history and review of systems is unobtainable due to her critical illness and rapid deterioration. 01/08: Initial therapy has worked well for patient. Her peripheral perfusion has improved in gas exchange is better. At this juncture were obligated to remove several liters of fluid while controlling the rise in serum sodium. Further, it is preferable that we diuresis off her pleural effusions if possible. At this juncture I will add low dose inotropic support in the form of milrinone. We will watch osmolality rise closely and attempt to attenuate the increase. With her poor left ventricle however we do not have the luxury of removing volume over many days. We are going to have to unload her left ventricle more quickly to prevent a sudden from arrhythmia. 01/09: Sodium rise more rapid than we would have preferred and diuresis has been held after the first dose a day and a half ago. We do not have the luxury of using desmopressin or free water at this time due to her markedly elevated BNP and profound pulmonary venous congestion. Objective Vital Signs / I&O: Vital Signs 01/08/18 08:48 01/08/18 10:00 01/08/18 12:00 Temperature 98.5 F Pulse Rate 84 86 Respiratory Rate 19 17 Blood Pressure 109/76 Pulse Oximetry 100 100 01/08/18 14:00 01/08/18 16:00 01/08/18 18:00 Temperature 98.5 F Pulse Rate 91 H 96 H 98 H Respiratory Rate 17 Blood Pressure 109/76 Pulse Oximetry 100 01/08/18 20:00 01/08/18 20:23 01/08/18 22:00 Temperature 97.8 F Pulse Rate 95 H 95 H Respiratory Rate 14 15 Blood Pressure 91/63 L Pulse Oximetry 97 99 01/09/18 00:00 01/09/18 01:28 01/09/18 02:00 Temperature 98.3 F Pulse Rate 97 H 109 H Respiratory Rate 14 14 Blood Pressure 103/62 Pulse Oximetry 98 98 01/09/18 03:40 01/09/18 04:00 01/09/18 06:00 Temperature 98.0 F Pulse Rate 96 H 94 H Respiratory Rate 14 14 Blood Pressure 100/57 L Pulse Oximetry 99 99 Intake & Output 01/08/18 01/09/18 01/09/18 18:59 06:59 18:59 Intake Total 150 / 150 300 / 300 150 / 150 Output Total 2950 / 2950 2700 / 2700 Balance -2800 / -2800 -2400 / -2400 150 / 150 Weight 52 kg Intake: IV 150 / 150 300 / 300 150 / 150 Versed Inj 50 mg In 50 ml @ 2 50 / 50 50 / 50 MG/HR 2 mls/hr IV.CONT TITRATE PRN Rx#:[id number] Primacor Inj 20 MG In NS Inj 80 100 / 100 ML @ 0.25 MCG/KG/MIN 4.4 mls/ hr IV.CONT .[id number] ARIAN Rx#: [id number] Flexbumin 25% Inj 100 ML @ 60 100 / 100 mls/hr IV.SIG ONCE ONE Rx#: [id number] KCl 20 mEq Premix Inj 20 meq In 200 / 200 100 ml @ 50 mls/hr IV.SIG Q2H PRN Rx#:[id number] KCl 40 mEq Premix Inj 40 meq In 100 / 100 100 ml @ 25 mls/hr IV.SIG Q2H PRN Rx#:[id number] Output: Urine Amount (Catheter) 2950 / 2950 2700 / 2700 Indwelling Urethral Catheter 2950 / 2950 2700 / 2700 Other: # Bowel Movements 0 Result Diagrams: 01/08/18 03:30 01/09/18 04:35 Objective Remarks: PE: GENERAL: Middle-age female, intubated, lightly sedated. HEENT: Normocephalic. Atraumatic. Pupils equal, round, reactive, conjugate. Mucous membranes are moist NECK: Trachea is midline. JVD with tensely distended veins. Orotracheal intubation. CHEST: Mechanically ventilated, diffuse crackles persist, decreased breath sounds left base. CARDIOVASCULAR: Tachycardic rate 92, regular rhythm, distended neck veins. ABDOMEN: Soft, nontender, nondistended. No guarding. MUSCULOSKELETAL: Pulses 2+. Anasarca extending up above the hips. NEUROLOGICAL: RASS -1. Opens eyes to voice, moves 4 limbs to command. Assessment and Plan - Assessment and Plan Plan: Assessment: 57-year-old female with acute systolic CHF exacerbation which is severe with associated severe life-threatening hypervolemic hyponatremia, severe acute hypoxic respiratory failure, severe multiorgan system dysfunction. Very critically ill. Given the severity of her respiratory failure and her CHF exacerbation combined with her severe systolic dysfunction, we must work aggressively towards diuresis in order to improve her cardiac output. This will likely result in rapid overcorrection of her serum hyponatremia. We will make every effort to mitigate this, however free water is contraindicated given the severity of her CHF exacerbation, and we are unable to diurese more slowly given the severity of her decompensation. Plan by systems: Neurologic: Acute metabolic encephalopathy Severe life-threatening hyponatremia Versed infusion to bradycardia seizure threshold in the setting of severe life- threatening hyponatremia Fentanyl infusion for goal RASS -2 Frequent neurochecks Daily sedation vacations Respiratory: Acute hypoxic respiratory failure Acute systolic CHF exacerbation Acute severe pulmonary edema Large bilateral pleural effusion, left greater than right Vent bundle Head of bed elevated Nebs We will hold off on left-sided thoracentesis in an attempt to medicate the amount of free water we removed from the patient. This will likely need to be intervened on before she will successfully from mechanical ventilation Start SBT today to keep her diaphragm exercised. Cardiovascular: Severe acute systolic CHF exacerbation Forced diuresis Follow-up formal 2D echocardiogram Unknown if she has a history of cardiomyopathy or not. Given age and other comorbidities, it is more likely nonischemic. Add milrinone for contractility and afterload reduction. Renal: Place [place] -- Strict I/Os FEN/GI: Severe life-threatening hyponatremia Severe hypokalemia Severe hypomagnesemia Severe acute protein calorie malnutrition Severe acute intravascular volume overload Forced diuresis Aggressive [place] light replacement Serial electrolytes [place] contraindicated given severe CHF exacerbation Place orogastric tube Start tube feeds Heme/ID: Leukocytosis Likely reactive and secondary to stress response No infectious etiology suspected this time Endocrine: Hyperglycemia of critical illness -- SSI Prophylaxis: GI Prophylaxis Pepcid DVT Prophylaxis -- SCDs Lovenox Lines: 01/08 right radial arterial line 01/08 left subclavian triple-lumen catheter [place] Overall impression: This woman is critically ill with end-stage acute on chronic systolic heart failure. Etiology unclear but this dilated cardiomyopathy is incompatible with long-term survival. Our immediate admission is to removal of large amounts of excess volume while attenuating the rise of serum sodium. We will make all reasonable attempts to avoid the neurologic sequelae of rapid sodium correction but this woman is in a preterminal state and aggressive volume removal is mandatory. Despite aggressive removal of the first 6 L of fluid she remains severely congested and ventilator dependent. Critical care 40 minutes Procedures - Arterial Line Size (Gauge): 20
[2018-01-09] MEDS: fentaNYL 10 mcg/mL Premix Drip 2,500 MCG/250 ML BAG IV.SIG PRN (13:28)
[2018-01-09 17:47] LABS: Glucose,Random 80 mg/dL (74-106); Sodium 132 meq/L (136-145)
[2018-01-09] MEDS: Enoxaparin Inj 40 MG/0.4 ML Syringe SQ SCH (23:20)
[2018-01-10] MEDS: Chlorhexidine Gluconate 2% 1 Pack (2 Cloths) TOPICAL SCH (04:55)
[2018-01-10] MEDS: Midazolam 50 MG/50 ML Inj 50 MG/50 ML BAG IV.CONT PRN (04:57)
[2018-01-10] MEDS: Famotidine 20 MG Tablet PO SCH ×2 (08:14→22:09)
[2018-01-10] MEDS: Senna/Docusate Sodium 8.6/50 MG Tablet PO SCH ×2 (08:14→22:09)
--- NOTE | 2018-01-10 09:51 | P.PNCC ---
Subjective Subjective Remarks/Hospital Course: This is a 57-year-old female who presents with worsening respiratory distress and shortness of breath. She endorsed to the ER physician several days of cough and worsening shortness of breath, which was associated with dyspnea on exertion and PND. In the emergency department she was found to have severe life -threatening hyponatremia with a serum sodium of 109. She additionally had a BNP elevated at 2200. She has severe electrolyte abnormalities including hypokalemia with potassium less than 3. Due to concerns over rapid overcorrection, she was very gently initially diuresed with 25 mill grams of p.o. spironolactone and 20 mg of IV Lasix in addition to aggressive electrolyte replacement. However, the patient deteriorated from a restaurant standpoint and was placed initially on BiPAP but went into worsening respiratory failure requiring emergent intubation, see separate procedure note for details. Due to her rapid deterioration, increased aggressive force diuresis was required despite the high risk of rapid overcorrection of sodium. Additionally, free water is absolutely contraindicated in this degree of worsening heart failure, so we have no way of mitigating her rapid sodium rise. I did perform bedside critical care ultrasound which demonstrates a severely depressed LV systolic function less than 20%, no pericardial effusion. Significant left pleural effusion, but again this was not intervened upon given concern for rapid removal of free water and rapid overcorrection of hyponatremia. Remainder of the history and review of systems is unobtainable due to her critical illness and rapid deterioration. 01/08: Initial therapy has worked well for patient. Her peripheral perfusion has improved in gas exchange is better. At this juncture were obligated to remove several liters of fluid while controlling the rise in serum sodium. Further, it is preferable that we diuresis off her pleural effusions if possible. At this juncture I will add low dose inotropic support in the form of milrinone. We will watch osmolality rise closely and attempt to attenuate the increase. With her poor left ventricle however we do not have the luxury of removing volume over many days. We are going to have to unload her left ventricle more quickly to prevent a sudden from arrhythmia. 01/09: Sodium rise more rapid than we would have preferred and diuresis has been held after the first dose a day and a half ago. We do not have the luxury of using desmopressin or free water at this time due to her markedly elevated BNP and profound pulmonary venous congestion. 01/10: Sodium has stabilized in the 625365 range. Urine output remains acceptable. Toes finally pink on milrinone, Levophed combination. Will check chest x-ray to assess effusions. This may be as good as she gets. She failed CPAP weaning trials but will persist. Underlying cardiac function remains marginal. She may need her effusions tapped to come off the ventilator. Objective Vital Signs / I&O: Vital Signs 01/09/18 10:00 01/09/18 12:00 01/09/18 13:07 Temperature 98.3 F Pulse Rate 86 88 Respiratory Rate 14 14 Blood Pressure 121/61 Pulse Oximetry 99 99 01/09/18 14:00 01/09/18 16:00 01/09/18 17:54 Temperature 99.1 F Pulse Rate 95 H 95 H Respiratory Rate 14 14 Blood Pressure 110/61 Pulse Oximetry 99 98 01/09/18 18:00 01/09/18 19:56 01/09/18 20:00 Temperature 98.8 F Pulse Rate 93 H 92 H Respiratory Rate 14 14 Blood Pressure 101/58 L Pulse Oximetry 98 98 01/09/18 22:00 01/09/18 23:34 01/10/18 00:00 Temperature 98.9 F Pulse Rate 93 H 93 H Respiratory Rate 14 14 Blood Pressure 90/51 L Pulse Oximetry 98 98 01/10/18 02:00 01/10/18 03:34 01/10/18 04:00 Temperature 99.0 F Pulse Rate 94 H 96 H Respiratory Rate 14 14 Blood Pressure 93/52 L Pulse Oximetry 97 01/10/18 06:00 01/10/18 08:00 01/10/18 08:24 Temperature 99.7 F H Pulse Rate 94 H 94 H Respiratory Rate 14 14 Blood Pressure 126/55 L Pulse Oximetry 98 Intake & Output 01/09/18 01/10/18 01/10/18 18:59 06:59 18:59 Intake Total 762 / 762 1346 / 1346 Output Total 800 / 800 725 / 725 Balance -38 / -38 621 / 621 Weight 50.9 kg Intake: IV 700 / 700 1049 / 1049 Versed Inj 50 mg In 50 ml @ 2 100 / 100 151 / 151 MG/HR 2 mls/hr IV.CONT TITRATE PRN Rx#:[id number] Primacor Inj 20 MG In NS Inj 80 100 / 100 102 / 102 ML @ 0.25 MCG/KG/MIN 4.4 mls/ hr IV.CONT .[id number] [facility] Rx#: [id number] Levophed Inj 16 MG In D5W Inj 250 / 250 182 / 182 234 ML @ 2 MCG/MIN 1.87 mls/hr IV.CONT TITRATE PRN Rx#: [id number] KCl 20 mEq Premix Inj 20 meq In 100 / 100 100 ml @ 50 mls/hr IV.SIG Q2H PRN Rx#:[id number] Potassium Phosphate Inj 30 MMOL 260 / 260 In NS Inj 250 ML @ 42 mls/hr IV.SIG UNSCH PRN Rx#:[id number] fentaNYL 10 mcg/mL Premix Drip 250 / 250 254 / 254 2,500 mcg In 250 ml @ 50 MCG/HR 5 mls/hr IV.SIG TITRATE PRN Rx #:[id number] Tube Feeding 62 / 62 257 / 257 Tube Irrigant 40 / 40 Output: Urine Amount (Catheter) 800 / 800 725 / 725 Indwelling Urethral Catheter 800 / 800 725 / 725 Other: # Bowel Movements 0 Result Diagrams: 01/08/18 03:30 01/10/18 04:10 Objective Remarks: PE: GENERAL: Middle-age female, intubated, lightly sedated. HEENT: Normocephalic. Atraumatic. Pupils equal, round, reactive, conjugate. Mucous membranes are moist NECK: Trachea is midline. JVD with tensely distended veins. Orotracheal intubation. CHEST: Mechanically ventilated, decreased breath sounds left base. CARDIOVASCULAR: Tachycardic rate 92, regular rhythm, neck veins finally flat. ABDOMEN: Soft, nontender, nondistended. No guarding. MUSCULOSKELETAL: Pulses 2+. Anasarca extending up above the hips. NEUROLOGICAL: RASS -1. Opens eyes to voice, moves 4 limbs to command. Assessment and Plan - Assessment and Plan Plan: Assessment: 57-year-old female with acute systolic CHF exacerbation which is severe with associated severe life-threatening hypervolemic hyponatremia, severe acute hypoxic respiratory failure, severe multiorgan system dysfunction. Very critically ill. Given the severity of her respiratory failure and her CHF exacerbation combined with her severe systolic dysfunction, we must work aggressively towards diuresis in order to improve her cardiac output. This will likely result in rapid overcorrection of her serum hyponatremia. We will make every effort to mitigate this, however free water is contraindicated given the severity of her CHF exacerbation, and we are unable to diurese more slowly given the severity of her decompensation. Plan by systems: Neurologic: Acute metabolic encephalopathy Severe life-threatening hyponatremia Versed infusion to bradycardia seizure threshold in the setting of severe life- threatening hyponatremia Fentanyl infusion for goal RASS -2 Frequent neurochecks Daily sedation vacations Respiratory: Acute hypoxic respiratory failure Acute systolic CHF exacerbation Acute severe pulmonary edema Large bilateral pleural effusion, left greater than right Vent bundle Head of bed elevated Nebs We will hold off on left-sided thoracentesis in an attempt to medicate the amount of free water we removed from the patient. This will likely need to be intervened on before she will successfully from mechanical ventilation Start SBT today to keep her diaphragm exercised. Cardiovascular: Severe acute systolic CHF exacerbation Forced diuresis Follow-up formal 2D echocardiogram Unknown if she has a history of cardiomyopathy or not. Given age and other comorbidities, it is more likely nonischemic. Add milrinone for contractility and afterload reduction. Renal: Place [place] -- Strict I/Os FEN/GI: Severe life-threatening hyponatremia Severe hypokalemia Severe hypomagnesemia Severe acute protein calorie malnutrition Severe acute intravascular volume overload Forced diuresis Aggressive [place] light replacement Serial electrolytes Freewater contraindicated given severe CHF exacerbation Place orogastric tube Start tube feeds Heme/ID: Leukocytosis Likely reactive and secondary to stress response No infectious etiology suspected this time Endocrine: Hyperglycemia of critical illness -- SSI Prophylaxis: GI Prophylaxis Pepcid DVT Prophylaxis -- SCDs Lovenox Lines: 01/08 right radial arterial line 01/08 left subclavian triple-lumen catheter [place] Overall impression: This woman is critically ill with end-stage acute on chronic systolic heart failure. Etiology unclear but this dilated cardiomyopathy is incompatible with long-term survival. Our immediate mission was the removal of large amounts of excess volume while attenuating the rise of serum sodium. We made all reasonable attempts to avoid the neurologic sequelae of rapid sodium correction but this woman was in a preterminal state and aggressive volume removal is mandatory. Despite aggressive removal of the first 6 L of fluid she remained severely congested and ventilator dependent. She is probably close to neutral from an intravascular volume standpoint now. Her tube feedings will provide enough daily fluids and we will supplement with albumin. Check chest x-ray to see if left effusion needs to be tapped prior to extubation. Critical care 40 minutes Procedures - Arterial Line Size (Gauge): 20
--- NOTE | 2018-01-10 09:55 | P.DIET ---
Nutritional Evaluation Type of nutrition evaluation: initial Nutrition consult regarding: Tube Feeding Objective - Diagnosis Hyponatremia, Respiratory Distress, Pleural Effusion - Objective % IBW: 90 Body Weight Used for Calculations: Actual (50.9kg) Energy Needs - Lower Range (kCal/kg): 28 Energy Needs - Upper Range (kCal/kg): 33 Lower Limit kCal/kg (kCals): 1,425 Upper Limit kCal/kg (kCals): 1,680 Lower Limit Protein Factor (Grams per Kg): 1.2 Upper Limit Protein Factor (Grams per Kg): 1.5 Lower Protein Needs (Protein): 61 Upper Protein Needs (Protein): 76 Dietitian Reviewed in Medical Record: Current diet, Curent medications, Intake & Output, Labs, Medical history Diet Order: NPO Objective Comments: PMH: CHF, HTN Meds include: Fentanyl Labs include: Na 133, Glucose 124, WBC 14.9 (-)BM Assessment Assessment: Pt at nutritional risk r/t need for TF for nutrition support. Pt with end-stage acute on chronic systolic heart failure per MD. Pt intubated and sedated on fentanyl. Nutritional needs as assessed above. TF Jevity 1.5 with goal rate 45 ml/hr will provide 1080 total volume, 1620 kcals, 69 gms protein and 821 mls free water. This is adequate to meet pt's nutritional needs. Will monitor TF, clinical course. Recommendations: TF Jevity 1.5 with goal rate 45 ml/hr Dietitian to Monitor: Lab values, Intake & Output, Tube feeding tolerance, Weight change, Medical course
[2018-01-10] MEDS ORDERED: Albumin Human 25% Inj 50 ML IV.SIG ONE (10:00)
--- NOTE | 2018-01-10 10:36 | XR ---
EXAM DATE: 01/10/2018 10:15 AM EDT AGE/SEX: 57 years / Female INDICATIONS: Heart failure. Hypoxemia. CLINICAL DATA: This is the patient's subsequent encounter. Patient reports that signs and symptoms h ave been present for 1 day and indicates a pain score of Nonresponsive. MEDICAL/SURGICAL HISTORY: . Carcinoma, breast . Mastectomy, right. [place] [facility] [place]. . FINDINGS: AP portable upright view of the chest demonstrates an endotracheal tube with the tip 2.4 cm above the level of the allie. There is improved aeration of the right hemithorax with only a small amount of hazy opacity overlying the right lower lobe. There is also improved aeration of the left hemithorax w ith persistent obscuration of the left hemidiaphragm consistent with left lower lobe atelectasis/cons olidation or persistent left-sided pleural effusion. The size of the effusion appears decreased. Heart size appears mildly enlarged but improved as compared to the prior exam.. Pulmonary vasculature is normal. CONCLUSION: Overall improved lung exam. Heart size is mildly enlarged but decreased in size from prior exam. Electronically signed by: Arelis Dumont MD 01/10/2018 10:34 AM EDT
[2018-01-10 11:39] LABS: Alanine Aminotransferase 15 U/L (10-53); Albumin 2.5 g/dL (3.4-5.0); Anion Gap 9 meq/L (5-15); Aspartate Aminotransferase 19 U/L (15-37); Blood Urea Nitrogen 7 mg/dL (7-18); Calcium 8.5 mg/dL (8.5-10.1); Carbon Dioxide 30.3 meq/L (21.0-32.0); Chloride 95 meq/L (98-107); Glomerular Filtration Rate Greater Than 89 mL/min (>89); Glucose,Random 104 mg/dL (74-106); Potassium 3.2 meq/L (3.5-5.1); Sodium 134 meq/L (136-145)
[2018-01-10 11:42] LABS: Alkaline Phosphatase 140 U/L (45-117); Total Protein 6.1 g/dL (6.4-8.2)
[2018-01-10] MEDS: Potassium Chlor 20 mEq Premix 20 MEQ/100 ML PIGGYBACK IV.SIG PRN ×2 (12:20→16:13)
[2018-01-11] MEDS: Enoxaparin Inj 40 MG/0.4 ML Syringe SQ SCH (00:36)
[2018-01-11] MEDS: Midazolam 50 MG/50 ML Inj 50 MG/50 ML BAG IV.CONT PRN (04:50)
[2018-01-11 07:12] LABS: Anion Gap 9 meq/L (5-15); Blood Urea Nitrogen 6 mg/dL (7-18); Calcium 8.7 mg/dL (8.5-10.1); Carbon Dioxide 29.5 meq/L (21.0-32.0); Chloride 98 meq/L (98-107); Glomerular Filtration Rate Greater Than 89 mL/min (>89); Glucose,Random 103 mg/dL (74-106); Potassium 4.2 meq/L (3.5-5.1); Sodium 136 meq/L (136-145)
[2018-01-11] MEDS: Famotidine 20 MG Tablet PO SCH ×2 (08:16→21:05)
[2018-01-11] MEDS: Senna/Docusate Sodium 8.6/50 MG Tablet PO SCH ×2 (08:16→21:05)
[2018-01-11] MEDS: Milrinone Inj 20 MG in Sodium Chlor 0.9% Inj 80 ML IV.CONT SCH (08:17)
--- NOTE | 2018-01-11 11:16 | P.PNCC ---
Subjective Subjective Remarks/Hospital Course: This is a 57-year-old female who presents with worsening respiratory distress and shortness of breath. She endorsed to the ER physician several days of cough and worsening shortness of breath, which was associated with dyspnea on exertion and PND. In the emergency department she was found to have severe life -threatening hyponatremia with a serum sodium of 109. She additionally had a BNP elevated at 2200. She has severe electrolyte abnormalities including hypokalemia with potassium less than 3. Due to concerns over rapid overcorrection, she was very gently initially diuresed with 25 mill grams of p.o. spironolactone and 20 mg of IV Lasix in addition to aggressive electrolyte replacement. However, the patient deteriorated from a restaurant standpoint and was placed initially on BiPAP but went into worsening respiratory failure requiring emergent intubation, see separate procedure note for details. Due to her rapid deterioration, increased aggressive force diuresis was required despite the high risk of rapid overcorrection of sodium. Additionally, free water is absolutely contraindicated in this degree of worsening heart failure, so we have no way of mitigating her rapid sodium rise. I did perform bedside critical care ultrasound which demonstrates a severely depressed LV systolic function less than 20%, no pericardial effusion. Significant left pleural effusion, but again this was not intervened upon given concern for rapid removal of free water and rapid overcorrection of hyponatremia. Remainder of the history and review of systems is unobtainable due to her critical illness and rapid deterioration. 01/08: Initial therapy has worked well for patient. Her peripheral perfusion has improved in gas exchange is better. At this juncture were obligated to remove several liters of fluid while controlling the rise in serum sodium. Further, it is preferable that we diuresis off her pleural effusions if possible. At this juncture I will add low dose inotropic support in the form of milrinone. We will watch osmolality rise closely and attempt to attenuate the increase. With her poor left ventricle however we do not have the luxury of removing volume over many days. We are going to have to unload her left ventricle more quickly to prevent a sudden from arrhythmia. 01/09: Sodium rise more rapid than we would have preferred and diuresis has been held after the first dose a day and a half ago. We do not have the luxury of using desmopressin or free water at this time due to her markedly elevated BNP and profound pulmonary venous congestion. 01/10: Sodium has stabilized in the 447322 range. Urine output remains acceptable. Toes finally pink on milrinone, Levophed combination. Will check chest x-ray to assess effusions. This may be as good as she gets. She failed CPAP weaning trials but will persist. Underlying cardiac function remains marginal. She may need her effusions tapped to come off the ventilator. 01/11: Remains intubated sedated, continues to fail CPAP trials. Currently on Levophed 7 mcg/min and milrinone at 0.25 mcg/kg/min. chest x-ray yesterday showed improving effusions. Remains critical Objective Vital Signs / I&O: Vital Signs 01/10/18 11:45 01/10/18 12:00 01/10/18 14:00 Temperature 99.4 F Pulse Rate 87 85 Respiratory Rate 13 13 Blood Pressure 115/62 Pulse Oximetry 98 01/10/18 16:00 01/10/18 18:00 01/10/18 19:59 Temperature 99.2 F Pulse Rate 93 H 88 Respiratory Rate 12 12 Blood Pressure 117/61 Pulse Oximetry 98 98 01/10/18 20:00 01/11/18 00:00 01/11/18 00:05 Temperature 97.8 F 97.7 F Pulse Rate 86 84 Respiratory Rate 12 12 12 Blood Pressure 117/66 126/82 Pulse Oximetry 99 99 100 01/11/18 02:00 01/11/18 03:52 01/11/18 04:00 Temperature 98.0 F Pulse Rate 84 88 Respiratory Rate 12 14 Blood Pressure 126/66 Pulse Oximetry 100 98 01/11/18 06:00 01/11/18 08:00 01/11/18 08:09 Temperature Pulse Rate 88 90 Respiratory Rate 13 Blood Pressure Pulse Oximetry 98 01/11/18 09:52 Temperature Pulse Rate 100 H Respiratory Rate Blood Pressure Pulse Oximetry Intake & Output 01/10/18 01/11/18 01/11/18 18:59 06:59 18:59 Intake Total 430 / 430 272 / 272 Output Total 450 / 450 550 / 550 Balance -20 / -20 -278 / -278 Weight 53.9 kg Intake: IV 218 / 218 Levophed Inj 16 MG In D5W Inj 68 / 68 234 ML @ 2 MCG/MIN 1.87 mls/hr IV.CONT TITRATE PRN Rx#: [id number] Flexbumin 25% Inj 50 ML @ 60 50 / 50 mls/hr IV.SIG ONCE ONE Rx#: [id number] KCl 20 mEq Premix Inj 20 meq In 100 / 100 100 ml @ 50 mls/hr IV.SIG Q2H PRN Rx#:[id number] Tube Feeding 212 / 212 222 / 222 Water Bolus Amount 50 / 50 Output: Stool 0 / 0 Urine Amount (Catheter) 450 / 450 550 / 550 Indwelling Urethral Catheter 450 / 450 550 / 550 Other: # Bowel Movements 0 Result Diagrams: 01/08/18 03:30 01/11/18 06:10 Objective Remarks: PE: GENERAL: Middle-age female, intubated, lightly sedated. HEENT: Normocephalic. Atraumatic. Pupils equal, round, reactive, conjugate. Mucous membranes are moist NECK: Trachea is midline. JVD with tensely distended veins. Orotracheal intubation. CHEST: Mechanically ventilated, decreased breath sounds left base. CARDIOVASCULAR: Tachycardic rate 92, regular rhythm, neck veins finally flat. Remains on pressors and inotropes ABDOMEN: Soft, nontender, nondistended. No guarding. MUSCULOSKELETAL: Pulses 2+. Anasarca extending up above the hips. NEUROLOGICAL: RASS -1. Opens eyes to voice, moves 4 limbs to command. Assessment and Plan - Assessment and Plan Plan: Assessment: 57-year-old female with acute systolic CHF exacerbation which is severe with associated severe life-threatening hypervolemic hyponatremia, severe acute hypoxic respiratory failure, severe multiorgan system dysfunction. Very critically ill. Given the severity of her respiratory failure and her CHF exacerbation combined with her severe systolic dysfunction, will continue diuresis. Monitor sodium closely Plan by systems: Neurologic: Acute metabolic encephalopathy Severe life-threatening hyponatremia Versed infusion to reduce seizure potential in the setting of severe life- threatening hyponatremia Fentanyl infusion for goal RASS -2 Frequent neurochecks Daily sedation vacations Respiratory: Acute hypoxic respiratory failure Acute systolic CHF exacerbation Acute severe pulmonary edema Large bilateral pleural effusion, now resolving Vent bundle. PRVC with daily weaning trials Head of bed elevated Nebs Chest x-ray shows improving effusions no indication for thoracentesis Cardiovascular: Severe acute systolic CHF exacerbation Forced diuresis, to be continued The left ventricular systolic function is severely reduced with an estimated ejection fraction less than 20%. Unknown if she has a history of cardiomyopathy or not. Given age and other comorbidities, it is more likely nonischemic. Milrinone for contractility and afterload reduction. Continue Levophed to maintain map above 65 Renal: [address] [place] -- Strict I/Os FEN/GI: Severe life-threatening hyponatremia Severe hypokalemia Severe hypomagnesemia Severe acute protein calorie malnutrition Severe acute intravascular volume overload Forced diuresis Aggressive Electrolyte replacement Serial electrolytes Orogastric tube, continue tube feeds Heme/ID: Leukocytosis Likely reactive and secondary to stress response No infectious etiology suspected this time Check blood cultures Endocrine: Hyperglycemia of critical illness -- SSI Prophylaxis: GI Prophylaxis Pepcid DVT Prophylaxis -- SCDs Lovenox Lines: 01/08 right radial arterial line 01/08 left subclavian triple-lumen catheter [place] Overall impression: This woman is critically ill with end-stage acute on chronic systolic heart failure. Etiology unclear but this dilated cardiomyopathy, but long-term prognosis appears poor. Our immediate mission was the removal of large amounts of excess volume while attenuating the rise of serum sodium. We made all reasonable attempts to avoid the neurologic sequelae of rapid sodium correction but this woman was in a preterminal state and aggressive volume removal is mandatory. Despite aggressive removal of the first 6 L of fluid she remained severely congested and ventilator dependent. She is probably close to neutral from an intravascular volume standpoint now. Her tube feedings will provide enough daily fluids and we will supplement with albumin. Critical care 35 minutes Procedures - Arterial Line Size (Gauge): 20
[2018-01-11] MEDS: fentaNYL 10 mcg/mL Premix Drip 2,500 MCG/250 ML BAG IV.SIG PRN (18:28)
--- NOTE | 2018-01-12 03:51 | XR ---
EXAM DATE: 01/12/2018 3:18 AM EDT AGE/SEX: 57 years / Female INDICATIONS: . Respiratory disease. CLINICAL DATA: This is the patient's subsequent encounter. Patient reports that signs and symptoms h ave been present for 3 days and indicates a pain score of Nonresponsive. MEDICAL/SURGICAL HISTORY: . Carcinoma, breast . Mastectomy, right. COMPARISON: [facility], CHEST 1V SINGLE AP, 01/10/2018. . FINDINGS: Endotracheal tube in good position. NG enters stomach. Left central line in superior vena cava. Bilat eral mostly basilar airspace disease with pleural effusions, left greater than right. No pneumothorax . CONCLUSION: Endotracheal tube and nasogastric tube unchanged. Basilar airspace disease and pleural effusions han lar to January 10. Electronically signed by: Beau Guadarrama MD 01/12/2018 3:50 AM EDT
[2018-01-12 04:33] LABS: Hematocrit 40.6 % (35.0-46.0); Hemoglobin 13.5 gm/dL (11.6-15.3); Mean Corpuscular HGB Conc 33.3 % (32.0-36.0); Mean Corpuscular Hemoglobin 31.9 pg (27.0-34.0); Mean Corpuscular Volume 95.9 fL (80.0-100.0); Mean Platelet Volume 6.5 fL (7.0-11.0); Platelet Count 431 th/mm3 (150-450); Red Blood Count 4.23 mil/mm3 (4.00-5.30); Red Cell Distribution Width 15.8 % (11.6-17.2); White Blood Count 11.9 th/mm3 (4.0-11.0)
[2018-01-12 04:55] LABS: Alanine Aminotransferase 19 U/L (10-53); Albumin 2.6 g/dL (3.4-5.0); Anion Gap 9 meq/L (5-15); Aspartate Aminotransferase 17 U/L (15-37); Blood Urea Nitrogen 8 mg/dL (7-18); Calcium 9.1 mg/dL (8.5-10.1); Chloride 97 meq/L (98-107); Glomerular Filtration Rate Greater Than 89 mL/min (>89); Glucose,Random 106 mg/dL (74-106); Magnesium 1.9 mg/dL (1.5-2.5); Potassium 3.9 meq/L (3.5-5.1); Sodium 139 meq/L (136-145)
[2018-01-12 04:57] LABS: Alkaline Phosphatase 185 U/L (45-117); Total Protein 6.7 g/dL (6.4-8.2)
[2018-01-12] MEDS: fentaNYL 10 mcg/mL Premix Drip 2,500 MCG/250 ML BAG IV.SIG PRN (04:58)
[2018-01-12] MEDS: Milrinone Inj 20 MG in Sodium Chlor 0.9% Inj 80 ML IV.CONT SCH (07:44)
[2018-01-12 08:00] LABS: ABG Base Excess 8.4 mmol/L (-2-2); ABG PCO2 48 mmHg (38-42); ABG PO2 98 mmHg (61-120)
[2018-01-12] MEDS: Famotidine 20 MG Tablet PO SCH ×2 (08:11→20:57)
[2018-01-12] MEDS: Senna/Docusate Sodium 8.6/50 MG Tablet PO SCH ×2 (08:12→20:57)
[2018-01-12] MEDS: Spironolactone 25 MG Tablet PO SCH ×2 (08:12→17:08)
--- NOTE | 2018-01-12 08:16 | P.PNCC ---
Subjective Subjective Remarks/Hospital Course: This is a 57-year-old female who presents with worsening respiratory distress and shortness of breath. She endorsed to the ER physician several days of cough and worsening shortness of breath, which was associated with dyspnea on exertion and PND. In the emergency department she was found to have severe life -threatening hyponatremia with a serum sodium of 109. She additionally had a BNP elevated at 2200. She has severe electrolyte abnormalities including hypokalemia with potassium less than 3. Due to concerns over rapid overcorrection, she was very gently initially diuresed with 25 mill grams of p.o. spironolactone and 20 mg of IV Lasix in addition to aggressive electrolyte replacement. However, the patient deteriorated from a restaurant standpoint and was placed initially on BiPAP but went into worsening respiratory failure requiring emergent intubation, see separate procedure note for details. Due to her rapid deterioration, increased aggressive force diuresis was required despite the high risk of rapid overcorrection of sodium. Additionally, free water is absolutely contraindicated in this degree of worsening heart failure, so we have no way of mitigating her rapid sodium rise. I did perform bedside critical care ultrasound which demonstrates a severely depressed LV systolic function less than 20%, no pericardial effusion. Significant left pleural effusion, but again this was not intervened upon given concern for rapid removal of free water and rapid overcorrection of hyponatremia. Remainder of the history and review of systems is unobtainable due to her critical illness and rapid deterioration. 01/08: Initial therapy has worked well for patient. Her peripheral perfusion has improved in gas exchange is better. At this juncture were obligated to remove several liters of fluid while controlling the rise in serum sodium. Further, it is preferable that we diuresis off her pleural effusions if possible. At this juncture I will add low dose inotropic support in the form of milrinone. We will watch osmolality rise closely and attempt to attenuate the increase. With her poor left ventricle however we do not have the luxury of removing volume over many days. We are going to have to unload her left ventricle more quickly to prevent a sudden from arrhythmia. 01/09: Sodium rise more rapid than we would have preferred and diuresis has been held after the first dose a day and a half ago. We do not have the luxury of using desmopressin or free water at this time due to her markedly elevated BNP and profound pulmonary venous congestion. 01/10: Sodium has stabilized in the 556087 range. Urine output remains acceptable. Toes finally pink on milrinone, Levophed combination. Will check chest x-ray to assess effusions. This may be as good as she gets. She failed CPAP weaning trials but will persist. Underlying cardiac function remains marginal. She may need her effusions tapped to come off the ventilator. 01/11: Remains intubated sedated, continues to fail CPAP trials. Currently on Levophed 7 mcg/min and milrinone at 0.25 mcg/kg/min. chest x-ray yesterday showed improving effusions. Remains critical 01/12: Remains on the vent, on Levophed now at 4 mcg/min, and melanoma 0.25 mg/kg /min. Urine output 1.8 L in 24 hours after restarting Lasix. Bicarb increased , will give 1 dose of Diamox. Attempt CPAP Objective Vital Signs / I&O: Vital Signs 01/11/18 08:00 01/11/18 08:09 01/11/18 09:52 Temperature 98.6 F Pulse Rate 92 H 100 H Respiratory Rate 13 13 Blood Pressure 118/60 Pulse Oximetry 98 98 01/11/18 11:16 01/11/18 12:00 01/11/18 13:56 Temperature 98.8 F Pulse Rate 102 H 98 H Respiratory Rate 25 H 16 Blood Pressure 119/77 Pulse Oximetry 99 97 01/11/18 15:48 01/11/18 16:00 01/11/18 17:51 Temperature 98.2 F Pulse Rate 90 90 98 H Respiratory Rate 11 L Blood Pressure 109/61 107/72 Pulse Oximetry 97 01/11/18 20:00 01/11/18 20:09 01/11/18 22:00 Temperature 98.2 F Pulse Rate 100 H 88 Respiratory Rate 14 12 Blood Pressure 108/66 Pulse Oximetry 97 99 01/11/18 23:47 01/12/18 00:00 01/12/18 02:00 Temperature 97.8 F Pulse Rate 92 H 90 Respiratory Rate 12 Blood Pressure 107/73 Pulse Oximetry 97 97 01/12/18 04:00 01/12/18 04:13 01/12/18 06:00 Temperature Pulse Rate 92 H 94 H Respiratory Rate 12 Blood Pressure Pulse Oximetry 100 Intake & Output 01/11/18 01/12/18 01/12/18 18:59 06:59 18:59 Intake Total 238 / 238 514 / 514 100 / 100 Output Total 850 / 850 975 / 975 Balance -612 / -612 -461 / -461 100 / 100 Intake: IV 250 / 250 100 / 100 Primacor Inj 20 MG In NS Inj 80 100 / 100 ML @ 0.25 MCG/KG/MIN 4.4 mls/ hr IV.CONT .[id number] [facility] Rx#: [id number] fentaNYL 10 mcg/mL Premix Drip 250 / 250 2,500 mcg In 250 ml @ 50 MCG/HR 5 mls/hr IV.SIG TITRATE PRN Rx #:[id number] Tube Feeding 238 / 238 224 / 224 Water Bolus Amount 40 / 40 Output: Urine Amount (Catheter) 850 / 850 975 / 975 Indwelling Urethral Catheter 850 / 850 975 / 975 Other: # Bowel Movements 0 Result Diagrams: 01/12/18 04:10 01/12/18 04:10 Objective Remarks: GENERAL: Middle-age female, intubated, lightly sedated. On multiple pressors HEENT: Normocephalic. Atraumatic. Pupils equal, round, reactive, conjugate. Orotracheally intubated NECK: Trachea is midline. JVD with distended veins. CHEST: Mechanically ventilated, decreased breath sounds left base. CARDIOVASCULAR: Tachycardic rate 92, regular rhythm, neck veins finally flat. Remains on pressors and inotropes ABDOMEN: Soft, nontender, nondistended. No guarding. MUSCULOSKELETAL: Pulses 2+. Anasarca extending up above the hips. NEUROLOGICAL: RASS -1. Opens eyes to voice, moves 4 limbs to command. No focal deficits Assessment and Plan - Assessment and Plan Plan: Assessment: 57-year-old female with acute systolic CHF exacerbation, (EF 20%) which is severe with associated severe life-threatening hypervolemic hyponatremia, severe acute hypoxic respiratory failure, severe multiorgan system dysfunction. Very critically ill. Given the severity of her respiratory failure and her CHF exacerbation combined with her severe systolic dysfunction, will continue diuresis. Monitor sodium closely Plan by systems: Neurologic: Acute metabolic encephalopathy Severe life-threatening hyponatremia Hold all continuous sedation Frequent neurochecks, seizure precautions Daily sedation vacations Respiratory: Acute hypoxic respiratory failure Acute severe pulmonary edema Left more than right pleural effusions Vent bundle. PRVC with daily weaning trials Head of bed elevated Nebs Plan bedside US, to evaluate effusion as indicated Cardiovascular: Severe acute systolic CHF exacerbation cardiomyopathy with ejection fraction 20% Forced diuresis, to be continued. IV Lasix 20 mg every 12 Diamox 500 mg IV 1 Start scheduled Aldactone 25 mg twice daily The left ventricular systolic function is severely reduced with an estimated ejection fraction less than 20%. Unknown if she has a history of cardiomyopathy or not. Given age and other comorbidities, it is more likely nonischemic. Milrinone for contractility and afterload reduction. Attempt wean to DC Milrinone Cardiology consult if patient has meaningful recovery EF 20%, QRS 190- if patient stays off vent will consult cardiology and EP for ischemia work up and evaluation for resynchronization therapy Aldactone 25 mg BID Add beta-blockers when fully compensated Renal: Continue Montano IV Lasix and Diamox as above -- Strict I/Os FEN/GI: Severe life-threatening hyponatremia Severe hypokalemia Severe hypomagnesemia Severe acute protein calorie malnutrition Severe acute intravascular volume overload Forced diuresis as above Aggressive Electrolyte replacement Serial electrolytes Orogastric tube, npo for possible extubation Heme/ID: Leukocytosis Likely reactive and secondary to stress response No infectious etiology suspected this time F/u blood cultures Endocrine: Hyperglycemia of critical illness -- SSI Prophylaxis: GI Prophylaxis Pepcid DVT Prophylaxis -- SCDs Lovenox Lines: 01/08 right radial arterial line-DC todat 01/08 left subclavian triple-lumen catheter Montano Overall impression: Critically ill with acute on chronic systolic heart failure. Etiology unclear but this dilated cardiomyopathy, but long-term prognosis appears poor. Continue aggressive diuresis. If she does well post extubation, will consult cardiology for further evaluation. Continue to wean to DC Levophed, continue milrinone for now. Single dose of Diamox, Aldactone added Critical care 35 minutes Procedures - Arterial Line Size (Gauge): 20
[2018-01-13] MEDS: Chlorhexidine Gluconate 2% 1 Pack (2 Cloths) TOPICAL SCH (03:54)
--- NOTE | 2018-01-13 06:32 | XR ---
EXAM DATE: 01/13/2018 6:03 AM EDT AGE/SEX: 57 years / Female INDICATIONS: . Shortness of breath. CLINICAL DATA: This is the patient's subsequent encounter. Patient reports that signs and symptoms h ave been present for 3 days and indicates a pain score of Nonresponsive. MEDICAL/SURGICAL HISTORY: Carcinoma, breast. Mastectomy, right. COMPARISON: [facility], CHEST 1V SINGLE AP, 01/12/2018. . FINDINGS: Left central line in superior vena cava. Previous endotracheal tube and nasogastric tube removed. Bas ilar airspace disease and pleural effusions not significantly changed since January 12. No pneumothorax. CONCLUSION: Extubation with relatively stable basilar airspace disease and pleural effusions compared with December 27. Electronically signed by: Beau Guadarrama MD 01/13/2018 6:30 AM EDT
[2018-01-13 07:22] LABS: Hemoglobin 15.4 gm/dL (11.6-15.3); Mean Corpuscular HGB Conc 33.6 % (32.0-36.0); Mean Corpuscular Hemoglobin 32.1 pg (27.0-34.0); Mean Corpuscular Volume 95.8 fL (80.0-100.0); Mean Platelet Volume 6.4 fL (7.0-11.0); Platelet Count 478 th/mm3 (150-450); Red Cell Distribution Width 15.7 % (11.6-17.2); White Blood Count 11.1 th/mm3 (4.0-11.0)
[2018-01-13 07:42] LABS: Alanine Aminotransferase 27 U/L (10-53); Anion Gap 11 meq/L (5-15); Blood Urea Nitrogen 15 mg/dL (7-18); Calcium 9.7 mg/dL (8.5-10.1); Carbon Dioxide 28.7 meq/L (21.0-32.0); Chloride 101 meq/L (98-107); Glucose,Random 91 mg/dL (74-106); Magnesium 2.1 mg/dL (1.5-2.5); Potassium 3.1 meq/L (3.5-5.1); Sodium 141 meq/L (136-145)
[2018-01-13 07:45] LABS: Alkaline Phosphatase 178 U/L (45-117); Aspartate Aminotransferase 27 U/L (15-37); Glomerular Filtration Rate Greater Than 89 mL/min (>89); Total Protein 7.6 g/dL (6.4-8.2)
--- NOTE | 2018-01-13 08:28 | P.PCN ---
Date of procedure: 01/13/18 Pre-op diagnosis: Moderate left pl effusion Post-op diagnosis: same Procedure: PROCEDURE: ultrasound-guided left thoracentesis INDICATION: Respiratory failure, moderate left-sided pleural effusion CONSENT: Consent was obtained from patient prior to the procedure. Indications, risks, and benefits were explained at length. PROCEDURE SUMMARY: A time out was performed and the chest x-ray was reviewed, the appropriate side was confirmed and marked with ultrasound. I wore a surgical cap, mask with protective eyewear, sterile gown and sterile gloves throughout the procedure. The patient was prepped and draped in a sterile manner using chlorhexidine scrub after the appropriate level was percussed and confirmed by ultrasound. 1% lidocaine was used to anesthetize the skin, subcutaneous tissue, superior aspect of the rib periosteum and parietal pleura. A small skin andreas was made. Thoracentesis angiocath introduced over the superior aspect of the rib to locate the pleural fluid; brownish yellow slightly cloudy fluid was aspirated. The thoracentesis catheter was advance without difficulty, and the needle was removed along with the syringe. Angiocath was then connected to the Vacutainer and 550 ml of brownish yellow, slightly cloudy colored fluid was removed without difficulty. The catheter was then removed. No immediate complications were noted during the procedure. A post-procedure chest x-ray is pending at the time of this note. The fluid will be sent for studies. Estimated blood loss is <1 ml. Anesthesia: regional Surgeon: Lg Larson Estimated blood loss (mL): 1 Pathology: other (see orders) Condition: stable Disposition: ICU
--- NOTE | 2018-01-13 08:45 | P.PNCC ---
Subjective Subjective Remarks/Hospital Course: This is a 57-year-old female who presents with worsening respiratory distress and shortness of breath. She endorsed to the ER physician several days of cough and worsening shortness of breath, which was associated with dyspnea on exertion and PND. In the emergency department she was found to have severe life -threatening hyponatremia with a serum sodium of 109. She additionally had a BNP elevated at 2200. She has severe electrolyte abnormalities including hypokalemia with potassium less than 3. Due to concerns over rapid overcorrection, she was very gently initially diuresed with 25 mill grams of p.o. spironolactone and 20 mg of IV Lasix in addition to aggressive electrolyte replacement. However, the patient deteriorated from a restaurant standpoint and was placed initially on BiPAP but went into worsening respiratory failure requiring emergent intubation, see separate procedure note for details. Due to her rapid deterioration, increased aggressive force diuresis was required despite the high risk of rapid overcorrection of sodium. Additionally, free water is absolutely contraindicated in this degree of worsening heart failure, so we have no way of mitigating her rapid sodium rise. I did perform bedside critical care ultrasound which demonstrates a severely depressed LV systolic function less than 20%, no pericardial effusion. Significant left pleural effusion, but again this was not intervened upon given concern for rapid removal of free water and rapid overcorrection of hyponatremia. Remainder of the history and review of systems is unobtainable due to her critical illness and rapid deterioration. 01/08: Initial therapy has worked well for patient. Her peripheral perfusion has improved in gas exchange is better. At this juncture were obligated to remove several liters of fluid while controlling the rise in serum sodium. Further, it is preferable that we diuresis off her pleural effusions if possible. At this juncture I will add low dose inotropic support in the form of milrinone. We will watch osmolality rise closely and attempt to attenuate the increase. With her poor left ventricle however we do not have the luxury of removing volume over many days. We are going to have to unload her left ventricle more quickly to prevent a sudden from arrhythmia. 01/09: Sodium rise more rapid than we would have preferred and diuresis has been held after the first dose a day and a half ago. We do not have the luxury of using desmopressin or free water at this time due to her markedly elevated BNP and profound pulmonary venous congestion. 01/10: Sodium has stabilized in the 727958 range. Urine output remains acceptable. Toes finally pink on milrinone, Levophed combination. Will check chest x-ray to assess effusions. This may be as good as she gets. She failed CPAP weaning trials but will persist. Underlying cardiac function remains marginal. She may need her effusions tapped to come off the ventilator. 01/11: Remains intubated sedated, continues to fail CPAP trials. Currently on Levophed 7 mcg/min and milrinone at 0.25 mcg/kg/min. chest x-ray yesterday showed improving effusions. Remains critical 01/12: Remains on the vent, on Levophed now at 4 mcg/min, and milrinone 0.25 mg/ kg/min. Urine output 1.8 L in 24 hours after restarting Lasix. Bicarb increased, will give 1 dose of Diamox. Attempt CPAP 01/13: Extubated yesterday breathing comfortably. Chest x-ray shows persistent left effusion, bedside ultrasound shows moderate sized left pleural effusion with some debris. Plan for thoracentesis with further studies. Discussed with Dr. Pierce will see him on consult, possible cath. Change Lasix to p.o., continue Aldactone, restart home losartan, add metoprolol succinate 12.5 daily. Objective Vital Signs / I&O: Vital Signs 01/12/18 09:03 01/12/18 10:00 01/12/18 12:00 Temperature Pulse Rate 87 95 H Respiratory Rate Blood Pressure Pulse Oximetry 99 01/12/18 14:00 01/12/18 16:00 01/12/18 17:27 Temperature 98.8 F Pulse Rate 94 H 85 99 H Respiratory Rate 18 Blood Pressure 101/71 Pulse Oximetry 100 01/12/18 20:00 01/12/18 21:42 01/12/18 22:00 Temperature 98.5 F Pulse Rate 98 H 87 Respiratory Rate 17 Blood Pressure 114/73 Pulse Oximetry 99 01/13/18 00:00 01/13/18 02:00 01/13/18 04:00 Temperature 98.2 F 98.7 F Pulse Rate 100 H 96 H 93 H Respiratory Rate 20 21 Blood Pressure 118/73 110/70 Pulse Oximetry 99 98 01/13/18 06:00 Temperature Pulse Rate 92 H Respiratory Rate Blood Pressure Pulse Oximetry Intake & Output 01/12/18 01/13/18 01/13/18 18:59 06:59 18:59 Intake Total 100 / 100 100 / 100 Output Total 1200 / 1200 650 / 650 Balance -1100 / -1100 -550 / -550 Weight 44 kg Intake: IV 100 / 100 100 / 100 Primacor Inj 20 MG In NS Inj 80 100 / 100 100 / 100 ML @ 0.25 MCG/KG/MIN 4.4 mls/ hr IV.CONT .[id number] [facility] Rx#: [id number] Oral 0 / 0 Output: Stool 0 / 0 Urine Amount (Catheter) 1200 / 1200 650 / 650 Indwelling Urethral Catheter 1200 / 1200 650 / 650 Other: # Bowel Movements 0 Result Diagrams: 01/13/18 06:59 01/13/18 06:59 Objective Remarks: GENERAL: Middle-age female, lying in bed HEENT: Normocephalic. Atraumatic. Pupils equal, round, reactive, conjugate. NECK: Trachea is midline. JVD improving. CHEST: Decreased breath sounds left base. Bedside ultrasound shows moderate left pleural effusion with debris CARDIOVASCULAR: S1-S2 normal no murmurs. EF approximately 15-20% ABDOMEN: Soft, nontender, nondistended. No guarding. MUSCULOSKELETAL: Pulses 2+. Anasarca + NEUROLOGICAL: Alert awake oriented. No focal deficits Assessment and Plan - Assessment and Plan Plan: Assessment: 57-year-old female with acute systolic CHF exacerbation, (EF 20%) which is severe with associated severe life-threatening hypervolemic hyponatremia, severe acute hypoxic respiratory failure, severe multiorgan system dysfunction. With aggressive diuresis all of the above has improved and patient is compensated now. Resume losartan start sustained-release beta- lynette. Cardiology consult for further workup Plan by systems: Neurologic: Severe life-threatening hyponatremia-resolved Frequent neurochecks, seizure precautions Respiratory: Acute hypoxic respiratory failure-resolved Acute severe pulmonary edema Left more than right pleural effusions Extubated 01/12/2018 tolerating well Head of bed elevated Nebs Plan for thoracentesis today Cardiovascular: Severe acute systolic CHF exacerbation cardiomyopathy with ejection fraction 20% Left bundle branch block, QRS [address] Pierce will see him consult plan for cardiac cath ischemia workup Change Lasix to p.o., continue Aldactone, resume losartan 25 mg daily, add metoprolol succinate 12.5 mg daily. The left ventricular systolic function is severely reduced with an estimated ejection fraction less than 20%. EF 20%, QRS 190-after ischemia ischemia work up and evaluation for resynchronization therapy may be appropriate Renal: Continue Montano Lasix and Aldactone as above -- Strict I/Os FEN/GI: Severe life-threatening hyponatremia Severe hypokalemia Severe hypomagnesemia Severe acute protein calorie malnutrition Severe acute intravascular volume overload Diuresis as above Aggressive Electrolyte replacement Serial electrolytes Heart healthy diet Heme/ID: Leukocytosis Likely reactive and secondary to stress response No infectious etiology suspected this time. Follow up pleural fluid studies F/u blood cultures Endocrine: Hyperglycemia of critical illness -- SSI Prophylaxis: GI Prophylaxis Pepcid DVT Prophylaxis -- SCDs Lovenox Lines: 01/08 right radial arterial line-DC today 01/08 left subclavian triple-lumen catheter-we will discontinue after cardiac catheterization Montano Overall impression: Stabilizing from acute on chronic systolic heart failure. Etiology unclear but this dilated cardiomyopathy, will need further workup including ischemia work and optimize medical treatment. D/W Dr. Pierce, will keep n.p.o. for potential cardiac catheterization Level 3 Consult [facility] to assume care in am. Ok to transfer to [facility] after cath Code Status: Full Discussed Condition With: Dr. Pierce Procedures - Arterial Line Size (Gauge): 20
[2018-01-13] MEDS ORDERED: Lisinopril 5 MG Tablet PO SCH (09:00)
--- NOTE | 2018-01-13 09:33 | XR ---
EXAM DATE: 01/13/2018 8:59 AM EDT AGE/SEX: 57 years / Female INDICATIONS: . Evaluate for pneumothorax post thoracentesis CLINICAL DATA: This is the patient's subsequent encounter. Patient reports that signs and symptoms h ave been present for 3 days and indicates a pain score of 0/10. MEDICAL/SURGICAL HISTORY: Carcinoma, breast. . Mastectomy, right. COMPARISON: [facility], CHEST 1V SINGLE AP, 01/13/2018. . FINDINGS: Status post thoracentesis. There is no evidence of pneumothorax. There is improving bibasilar atelect asis. The heart size is stable. There is stable interstitial changes bilaterally. There is a left-sahil ed central line in place. The bony structures are stable. CONCLUSION: Status post thoracentesis. No evidence of pneumothorax. Electronically signed by: Gold Escoto MD 01/13/2018 9:32 AM EDT
[2018-01-13 09:34] LABS: Total Protein,Pleural Fluid 4.6 gm/dL
[2018-01-13 10:46] LABS: RBC,Pleural Fluid 5466 /mm3 (0-0)
[2018-01-13 10:49] LABS: Eosinophils,Pleural Fluid 3 %; Lymphocytes,Pleural Fluid 10 %; Mesothelial,Pleural Fluid 4 %; Monocytes,Pleural Fluid 2 %; Neutrophils,Pleural Fluid 79 %
[2018-01-13] MEDS ORDERED: fentaNYL Citrate Inj 100 MCG/2 ML Ampul ONE (10:58)
--- NOTE | 2018-01-13 10:58 | MB ---
cc: Bud Pierce DO DATE: 01/13/2018 REASON FOR CONSULTATION: New onset heart failure. HISTORY OF PRESENT ILLNESS: Whitley Hayes is a pleasant 57-year-old female who presented to [facility] on 01/07/2018 due to shortness of breath. Apparently, she had been dealing with several days of a cough and worsening shortness of breath. This was noted with any type of exertion or laying down flat. In the emergency room, she was found to be hyponatremic with a serum sodium of 109. At that time, she was started on diuresis and was intubated. At that time, she was started on diuretics and in the emergency room was intubated. Since that time, she has had an echocardiogram which shows an ejection fraction of less than 20%. She also has since been extubated and is currently sitting up in a chair without chest pain or shortness of breath. She states that she did have an episode of chest pain a few months ago, which felt like an elephant on her chest, but it went away. Lastly, she denies drug abuse, but does state that she drinks 6-8 beers a night and she said that she has done this for 20 some years. PAST MEDICAL HISTORY: 1. Hypertension. 2. Tobacco abuse. 3. Alcohol abuse. 4. Breast cancer. PAST SURGICAL HISTORY: 1. Right-sided mastectomy. ALLERGIES: NO KNOWN DRUG ALLERGIES. MEDICATIONS: 1. Albuterol 2 puffs every 4-6 hours as needed for shortness of breath. 2. Losartan 25 mg daily. 3. Hydrochlorothiazide 25 mg daily. FAMILY HISTORY: Denies premature coronary artery disease or sudden cardiac within the family. SOCIAL HISTORY: The patient states that she has smoked half a pack of cigarettes up until her admission on 01/07/2018. She also drinks 6-8 beers a night for 20+ years. Denies drug abuse. REVIEW OF SYSTEMS: Fourteen systems were reviewed including osteopathic pertinent positives and negatives as above, otherwise negative. PHYSICAL EXAMINATION: VITAL SIGNS: Temperature 98.7, heart rate 93, blood pressure 110/70, respirations 20, pulse oximetry 98% on 3 liters. GENERAL: The patient appears older than stated age. No acute distress. Alert, awake and oriented x 3. HEENT: Extraocular muscles intact. Mucous membranes moist. NECK: Supple. No JVD at 45 degrees. No carotid bruits heard bilaterally. Carotid upstroke is brisk in nature. HEART: Regular rate and rhythm. Positive first and second heart sound with no noted murmurs, gallops or rubs. LUNGS: Decreased breath sounds at the left base, but otherwise no significant wheezes, rales, or rhonchi. ABDOMEN: Soft, nontender, nondistended. No organomegaly noted. EXTREMITIES: Show no clubbing, cyanosis or edema. NEUROLOGIC: No focal deficits. SKIN: Warm, dry and intact. OSTEOPATHIC: No kyphoscoliosis, lordosis or paraspinal tender points. LABORATORY DATA: Hemoglobin 15.4, hematocrit 46.0, platelets 478. Potassium 3.1, BUN 15, creatinine 0.47. Electrocardiogram (01/07/2018 at 2147) sinus rhythm, possible left atrial enlargement, left bundle branch block. IMPRESSIONS: 1. Acute systolic heart failure with an ejection fraction less than 20%. 2. New onset cardiomyopathy of unknown cause. 3. Tobacco abuse. 4. Alcohol abuse. 5. History of hypertension. 6. Critical hyponatremia, which has since been corrected. 7. Questionable episode of chest pain a number of months ago. 8. History of breast cancer, status post right mastectomy. RECOMMENDATIONS: 1. Ms. Hayes presented with significant shortness of breath and was found to be in acute systolic heart failure with extensive hyponatremia. She has since been diuresed and is now compensated with normalization of her sodium level. 2. This is a new cardiomyopathy with an ejection fraction less than 20%. Ultimately, this may be due to alcohol abuse as she drinks 6-8 beers a night for 20+ years. I spoke to her about stopping alcohol, which she is willing to do. 3. We will plan on a right and left heart catheterization to rule out ischemic heart disease as a possible cause as she previously had chest pain as well as her new onset cardiomyopathy. Risks, benefits and alternatives have been explained to her and she consented as such. 4. She will most likely need a LifeVest upon discharge if approved by her insurance company. I would plan for a repeat echo in 3 months and If ejection fraction is still low on optimal medical therapy, she will need consideration of an ICD. 5. I spoke to her for greater than 3 minutes about tobacco cessation. 6. Further recommendations will be made based on cardiac catheterization. Thank you for allowing me to see Whitley Abigail. If there are any questions, please do not hesitate to call. Bud Pierce DO VGP/DL , 10:30 AM , 10:56 AM
[2018-01-13] MEDS ORDERED: Heparin/NS PF Inj 500 ML ONE (11:40)
--- NOTE | 2018-01-13 12:01 | CATHPROC ---
[employer] HIS Report Study Information Study Number Admission Scheduled Start Study Start [id number] Jan 07 2018 11:12PM 01/13/2018 Jan 13 2018 10:10AM [place] [facility] STR Admit Source Facility Department Emergency department [facility] - Housekeeper And Laundry Assistant Physician and Clinical Staff Initial Bud Helms Training And Development Project Leader Elisabeth Alcantar,SOL Recorder Nikunj Franklin,RT(R) Scrub Kelli Barros,EDYTA TECH2 Procedures Performed Procedure Location (Site) Vessel Name Coronary Angiograms LCA Left Coronary Coronary Angiograms RCA Right Coronary L Heart Cath Equipment Time Fig Bar Machine Operator Description Size Mfg Part Number Used/Scraped ARROW INTERNATIONAL CATHETER, FR.7 BALLOON [id number] 11:05 FR 7 Used INC. WEDGE PRESSURE *[id number] TRANSDUCER, [email or web address] [id number] 10:11 MOSQUERA DONALD * Used W/STOCKCOCK *[id number] INTRODUCER SET, 10:11 COOK INC. FR 5 [id number] *[id number] Used MICROPUNCTURE STIFF [id number] *[id number] 10:11 Second Sight BLANKET,WARM AIR CCL * Used *[id number] 10:11 Second Sight PACK, CCL CUSTOM * Used *[id number] 11:26 MEDTRONIC JL 4.0 DXTERITY CATHETER FR 5 Used *[id number] 10:11 dermSearch WIRE, 3MMJ .035 180CM 180CM Used *[id number] 10:11 NAMIC MANIFOLD, 4 PORT * Used *[id number] 10:11 NYCOMED OMNIPAQUE, 350 MG, 150ML 150ML [id number] Used [id number] 10:11 TERUMO MEDICAL SHEATH, FR5 TERUMO (10CM) FR 5 Used *[id number] 10:11 TERUMO MEDICAL SHEATH, FR7 TERUMO (10CM) FR 7 Used *[id number] Equipment Model, Serial, Lot Number and Expiration Data Description Model Number Serial Number Lot Number Expiration Da te JL 4.0 DXTERITY CATHETER [id number] 04-14-2020 History: Current Medications Medication Dosage/Unit Route Frequency Last Date/Time Taken Beta Vasquez History: Allergies Allergy Reaction No Known Allergies History: Risk Factors Family History of Hypertension Dyslipidemia Previous ND Previous Heart Failure Premature CAD No No No No No Prior Valve Prior PCI Prior CABG Surgery No No No Cerebrovascular Peripheral Artery Chronic Lung On Dialysis Diabetes Disease Disease Disease No No No No No History: Symptoms/Diagnosis Selection Items SOB History: CV Disease Selection Items Cardiomyopathy History: Stress Tests Stress or Imaging Studies Performed No Labs Hgb (g/dl) Hct (%) RBC (MIL/MM3) WBC (l/cumm) Platelets (thousands) 11.60-17.00 35.00-51.00 4.00-5.90 4.00-11.00 150.00-450.00 15.4 46 4.8 11.1 478 Glucose (mg/dl) BUN (mg/dl) Creatinine (mg/dl) BUN:Creatinine (1:x) 74.00-106.00 7.00-18.00 0.50-1.30 10.00-20.00 91 15 0.5 30 Na (meq/l) K (meq/l) Cl (meq/l) CO2 (mmol/L) Ca (mg/dl) 136.00-145.00 3.50-5.10 98.00-107.00 21.00-32.00 8.50-10.10 141 3.1 101 28.7 9.7 Troponin I (ng/ml) CPK-MB (ng/ML) 0.02-0.05 0.50-3.60 0.02 Not Drawn Medication Medication Total Dose (Bolus/Oral) Medication Total Dosage/Unit 1% XYLOCAINE 20 mL FENTANYL 100 mcg OXYGEN 2 l/min Medications (Bolus/Oral) Medication Time Given Dosage/Unit Administered By Reason 1% XYLOCAINE 01/13/2018 11:03:10 AM 20 mL Bud Pierce 20 mL 1% XYLOCAINE given in lab by Bud Pierce in Right Groin via Subcutaneous. FENTANYL 01/13/2018 11:05:58 AM 50 mcg Elisabeth Alcantar 50 mcg FENTANYL given in lab by Elisabeth Alcantar RN in Left Antecubital via Peripheral IV. FENTANYL 01/13/2018 11:08:44 AM 50 mcg Elisabeth Alcantar 50 mcg FENTANYL given in lab by Elisabeth Alcantar, SOL in Left Antecubital via Peripheral IV. OXYGEN 01/13/2018 11:31:57 AM 2 l/min Elisabeth Alcantar 2 l/min OXYGEN given in lab by Elisabeth Alcantar, SOL via Nasal. Ordered by Bud Pierce Medication (Drip) Medication Time Given Dosage/Unit Concentration/Unit Diluent (ml) Solution IV Solutions 01/13/2018 10:39:29 AM 0 mL (IV) 500 NaCl .9 IV Solutions given in lab by Elisabeth Alcantar, RN in Left Antecubital via Peripheral IV. Pump/Drip Bob w = 20 ml/hr using NaCl .9. Initial Case Assessment Cardiovascular HR Rhythm NIBP Chest Pain 103 Sinus 130/90 0 Edema Present Skin color Skin None Normal Warm Dry Circulatory - Right Pulses Dorsalis Pedis Posterior Tibial Femoral d d 2 Scale (0,1,2,3,4,d) Circulatory - Left Pulses Dorsalis Pedis Posterior Tibial Femoral d d 2 Scale (0,1,2,3,4,d) Neurological State Oriented to time-place- Alert Moves all extremities person Respiration - General Respiration Rate SpO2 (%) O2 (lpm) (B/min) 20 100 4 Final Case Assessment Cardiovascular HR Rhythm NIBP Chest Pain 99 Sinus 120/77 0 Edema Present Skin color Skin None Normal Warm Dry Circulatory - Right Pulses Dorsalis Pedis Posterior Tibial Femoral d d 2 Scale (0,1,2,3,4,d) Circulatory - Left Pulses Dorsalis Pedis Posterior Tibial Femoral d d 2 Scale (0,1,2,3,4,d) Neurological State Oriented to time-place- Alert Moves all extremities person Respiration - General Respiration Rate SpO2 (%) O2 (lpm) (B/min) 20 100 2 Chronological Log Time Study Chronological Log 10:34:43 Patient arrived via Bed. 10:34:45 Patient Name, D.O.B, / Armband Verified By R.N. 10:34:46 Consent signed by the physician and the patient and verified by the Housekeeper And Laundry Assistant staff. 10:34:47 Pre-op and post- op instructions given; patient acknowledges understanding of instructions. 10:34:48 Verbal Stimulation=2 Physical Stimulation=2 Airway=2 Respiration=2 TOTAL=8. (0=absent, 1=li mited, 2=present) 10:34:48 Presedation assessment performed by Housekeeper And Laundry Assistant RN. 10:34:58 Patient has been NPO for More than 6Hrs. 10:34:58 Skin Breakdown- none per patient. 10:35:00 Patient Warmer Placed on the Table. 10:35:05 Angel Prominences Protected 10:35:06 A # 20 IV was noted in the Antecubital (left). Grade = 0 IV Solutions given in lab by Elisabeth Alcantar RN in Left Antecubital via Peripheral IV. Pump/Dr ip Flow = 20 ml/hr using 10:39:29 NaCl .9. 10:39:54 History and physical on the chart or being dictated. Assessment: Initial Case, NQ=584 BPM, Rhythm=Sinus, RTWB=831/90 mmhg, Chest Pain=0, Edema=None, Color=Normal, Skin = Warm, Dry Right Pulses: Oscar Ped=d, Post Tib=d, Femoral=2 10:39:56 Left Pulses: Oscar Ped=d, Post Tib=d, Femoral=2 Neurological: State=Alert, Ox3, PITTS Respiration: Resp=20 B/min, PgR5=337 %, O2=4 lpm 10:41:48 A IV was noted in the Subclav. Vein Triple lumen central line. Vitals capture started with the following parameters, Patient=Adult, Interval=5 min, Initial Pr nnvftp=973 mmHg, 10:44:37 Deflation Rate=5 mmHg, Cuff placed on Left Arm 10:45:18 QG=681 bpm, UPHM=979/90 mmhg, AdR8=184.0 %, Resp=24 B/min, Pain=0, Hugo=10, Farooq=2 10:47:57 Bilateral groins prepped with 2% chlorhexidine, and draped after a 3 minute waiting time. 10:48:30 Reference ECG taken 10:50:13 WT=108 bpm, CPFP=291/88 mmhg, LaR3=214.0 %, Resp=28 B/min, Pain=0, Hugo=10, Farooq=2 10:52:20 MD paged 10:55:12 YN=918 bpm, ZZHB=755/90 mmhg, Resp=21 B/min, Pain=0, Hugo=10, Farooq=2 10:57:28 MD arrived. 11:00:13 MH=338 bpm, PDGM=840/94 mmhg, Resp=24 B/min, Pain=0, Hugo=10, Farooq=2 11:01:09 Pressure channel 1 zeroed. Time Out. Correct patient, correct procedure, correct physician, labs, allergies, and equipment verified with slabber light 11:01:59 team present. Fire risk assesment completed (see hard stop sheet for coding). Time Out Conc urred by MD and individual staff in procedure. 11:03:07 Case Start 11:03:10 20 mL 1% XYLOCAINE given in lab by Bud Pierce in Right Groin via Subcutaneous. 11:05:12 XE=283 bpm, JXAT=116/93 mmhg, Resp=18 B/min, Pain=0, Hugo=10, Farooq=2 11:05:58 50 mcg FENTANYL given in lab by Elisabeth Alcantar, RN in Left Antecubital via Peripheral IV. 11:07:04 Access site was Right Femoral Artery. 11:07:11 A SHEATH, FR5 TERUMO (10CM) FR 5 was advanced into the Fem Art (right) using the Percutaneo us technique. 11:08:44 50 mcg FENTANYL given in lab by Elisabeth Alcantar, SOL in Left Antecubital via Peripheral IV. 11:09:01 Access site was Right Femoral Vein. 11:09:09 A SHEATH, FR7 TERUMO (10CM) FR 7 was advanced into the Fem Vein (right) using the Percutane ous technique. 11:10:09 BI=345 bpm, UIKY=198/87 mmhg, SpO2=88.0 %, Resp=20 B/min, Pain=0, Hugo=10, Farooq=2 11:10:38 A CATHETER, FR.7 BALLOON WEDGE PRESSURE FR 7 was inserted via Fem Vein (right) 11:13:20 Disposable Defibrillator Pads Placed On Patient. 11:15:14 VS=934 bpm, VBHK=557/85 mmhg, SpO2=89.0 %, Resp=19 B/min 11:16:12 Pressure channel 1 zeroed. Recorded Pressure: PCW, EZ=597, Condition=Condition 1 11:16:27 (Pulmonary Capillary Wedge) PCW 17/14 11:17:24 Saturation: Site=PA (Pulmonary Artery) , O2=63.8 %, Hgb=15.4 gm/dl, Condition=Condition 1. Used in calculation. 11:18:11 Saturation: Site=Ao (Aorta) , O2=91.5 %, Hgb=15.4 gm/dl, Condition=Condition 1. Used in annabella culation. Recorded Pressure: MPA, ZU=177, Condition=Condition 1 11:18:22 (Main Pulmonary Artery) MPA 23/8/14 Recorded Pressure: RV, YA=333, Condition=Condition 1 11:19:25 (Right Ventricle) RV 27/-5/8 Recorded Pressure: RA, PV=087, Condition=Condition 1 11:19:53 (Right Atrium) RA 1/0/-1 11:20:08 [place] Tony Catheter Removed 11:20:13 IR=072 bpm, FIPC=582/84 mmhg, SpO2=90.0 %, Resp=25 B/min A JR 4.0 INFINITI CATHETER FR 5 was advanced over a wire. OMNIPAQUE, 350 MG, 150ML 150ML was us ed for 11::47 injections. Recorded Pressure: LV, TH=380, Condition=Condition 1 11:23:30 (Left Ventricle) LV 118/-1/14 Recorded Pressure: LV, Ao, TK=245, Condition=Condition 1 11:23:47 (Left Ventricle) LV 119/0/18, (Aorta) Ao 122/74/94 Recorded Pressure: Ao, MW=011, Condition=Condition 1 11:24:18 (Aorta) Ao 119/80/97 11:24:36 The RCA was injected and visualized at various angles. OMNIPAQUE, 350 MG, 150ML 150ML used . 11:25:14 NH=011 bpm, NIWZ=101/80 mmhg, SpO2=89.0 %, Resp=27 B/min After removing the current catheter a JL 4.0 DXTERITY CATHETER FR 5 was advanced over a WIRE, 3 MMJ .035 180CM 11:25:47 180CM. 11:28:10 The LCA was injected and visualized at various angles. OMNIPAQUE, 350 MG, 150ML 150ML used . 11:30:08 Catheter was removed 11:30:15 HR=95 bpm, BFHS=257/77 mmhg, SpO2=88.0 %, Resp=22 B/min 11:31:11 Case End (Physician broke scrub) Assessment: Final Case, HR=99 BPM, Rhythm=Sinus, WNUU=105/77 mmhg, Chest Pain=0, Edema=None, Color=Normal, Skin = Warm, Dry Right Pulses: Oscar Ped=d, Post Tib=d, Femoral=2 11:31:27 Left Pulses: Oscar Ped=d, Post Tib=d, Femoral=2 Neurological: State=Alert, Ox3, PITTS Respiration: Resp=20 B/min, YqV5=180 %, O2=2 lpm 11:31:57 2 l/min OXYGEN given in lab by Elisabeth Alcantar, RN via Nasal. Ordered by Bud Pierce 11:32:51 Catheter(s) removed without difficulty 11:32:54 Sheath removed; pressure applied to access site. 11:33:00 Sterile dressing applied to site 11:33:01 No case complications noted. 11:33:01 Cine recording checked. 11:33:02 Bedside Report will be given. 11:33:10 A Left Heart Cath was performed. 11:35:14 HR=97 bpm, YPII=843/85 mmhg, Resp=24 B/min 11:40:16 HR=97 bpm, YABC=161/85 mmhg, SpO2=95.0 %, Resp=17 B/min 11:45:21 WO=701 bpm, AYXG=404/58 mmhg, SpO2=97.0 %, Resp=23 B/min 11:50:16 HR=98 bpm, EYFL=702/87 mmhg, SpO2=92.0 %, Resp=29 B/min 11:54:53 Vitals capture stopped. 11:58:38 Patient moved to [facility] End Study - Contrast Media Used In Study Contrast Total Opened (mL) Total Used (mL) Total Wasted (mL) Omnipaque 55 55 0 End Study - Maximum Contrast Load Max Contrast Load (mL) 440.0 End Study - Radiation Exposure Fluoro Time (minutes) 3.7 End Study - Sheaths Sheaths Pulled By Sheath Hold Time (min) Kelli Barros 15 End Study - Patient Disposition Complications Transferred To Interventional Outcome No Critical Care Bed No attempt made
--- NOTE | 2018-01-13 12:30 | MA ---
cc: Bdu Pierce DO DATE: 01/13/2018 PROCEDURE: Left heart catheterization, right heart catheterization, coronary angiogram. PREPROCEDURE DIAGNOSIS: Decompensated acute systolic heart failure, new onset cardiomyopathy with an ejection fraction of 20%, previous episode of chest pain. POSTPROCEDURE DIAGNOSIS: Well compensated systolic heart failure, new onset nonischemic cardiomyopathy with an ejection fraction of 20%. MEDICATIONS: Fentanyl 100 mcg. CONTRAST USED: 55 mL FLUOROSCOPY: 3.7 minutes. SEDATION: Moderate sedation, 0 minutes. FRAILTY SCORE: 4. ESTIMATED BLOOD LOSS: 10 mL PROCEDURAL SUMMARY: Whitley Hayes is a pleasant 57-year-old female who originally presented to [facility] with significant shortness of breath. She was also found to be significantly fluid overloaded and hyponatremic and required intubation. Since that time, she has been extubated and diuresed. As she was found to have an ejection fraction of 20% and this is a new cardiomyopathy, she was recommended cardiac catheterization. Risks, benefits and alternatives were explained to her and she consented as such. She was brought to the lab and prepped in the usual sterile fashion. The right femoral artery was accessed using a modified Seldinger technique and placement of a 5-[place] sheath. Right femoral vein was accessed using a modified Seldinger technique and placement of 7-[place] . Both easily aspirated and flushed. A [place]-Tony catheter was advanced to wedge position and oxygen saturations, as well as pressures were done on a standard pullback throughout the heart port. [place]-Tony catheter was removed. A JR4 was advanced over a J-wire to the ascending aorta and across the aortic valve for measurement of left ventricular pressure. This was pulled back across the aortic valve showing no significant gradient of aortic stenosis. JR4 was used for selective angiography of the right coronary artery system. This was exchanged out for JL4, which was used for selective angiography of the left coronary artery system. JL4 was removed over a J wire. Both sheaths were removed with pressure held for hemostasis. The patient left the field laboratory operator cardiovascularly stable. FINDINGS: LEFT MAIN: Normal-sized vessel with adequate reflux. It bifurcates into an LAD and circumflex. LAD: Moderate-sized vessel with no disease noted throughout. It gives off 1 large diagonal which has 30% disease in the proximal portion and then splits into an upper and lower branch covering a large area of the myocardium with no significant disease. LEFT CIRCUMFLEX: Small to moderate-sized vessel with no significant disease. It gives off 1 obtuse marginal, which has 30% proximal disease. RCA: Moderate-sized vessel with mild luminal irregularities up to 30% throughout the mid portion. It gives off a posterior descending and 2 posterolateral branches which do cover a large area of myocardium with no significant disease. HEMODYNAMICS: RA 1. RV 27/0, RVEDP 8. PA 23/8, mean PA 14. Wedge 14. Cardiac output 3.1. Cardiac index 2.2. IMPRESSION: 1. Well compensated systolic heart failure. 2. New onset cardiomyopathy with an ejection fraction of 20%, nonischemic in nature. 3. Tobacco abuse. 4. Alcohol abuse. RECOMMENDATIONS: 1. Ms. Hayes presented with new onset acute systolic heart failure with significant decompensation requiring intubation, as well as correction of her hyponatremia. 2. Since that time, it appears that she has been well diuresed and her hemodynamics suggest that she is currently compensated. 3. Her catheterization showed no significant coronary artery disease and so further evaluation for a nonischemic cardiomyopathy should be done. Overall, she questions on whether she had a viral illness a couple weeks ago, although her symptoms suggested that this may be the start of her congestive heart failure as it was mostly shortness of breath and coughing while lying flat. I did speak to her about consideration of HIV testing as a possible cause, but she feels that she is overall low risk as she has not had multiple sexual partners, no high-risk sexual activity or IV drug abuse. 4. She does drink 6-8 beers nightly and this has gone on for 20+ years. This may be the cause of her nonischemic cardiomyopathy. I did discuss with her that she needs to stop drinking, which she is willing to do. Ultimately, even if this was not the cause of her cardiomyopathy, it overall needs to be stopped as it is overall cardiotoxic in heart failure. 5. She has been started on heart failure medications including Toprol-XL, spironolactone and losartan. She should continue on these for optimal medical therapy. 6. She will be evaluated for a LifeVest, which I think is appropriate as her ejection fraction is less than 20%. 7. She will need a repeat echo in 2-3 months to evaluate on optimal medical therapy. If ejection fraction is still low at that time, then consideration of ICD therapy. Thank you for allowing me to see Whitley Hayes. If there are any questions, please do not hesitate to call. Bud Pierce DO VGP/TL , 11:59 AM , 12:29 PM
[2018-01-13] MEDS ORDERED: Iohexol 350 MG/ML 50 ML Vial (for Cath Lab) IVCONTRAST ONE (13:14)
[2018-01-13] MEDS: Potassium Chlor 40 mEq Premix 40 MEQ/100 ML PIGGYBACK IV.SIG PRN ×2 (16:40→16:52)
[2018-01-13] MEDS: Spironolactone 25 MG Tablet PO SCH ×2 (16:43→19:27)
[2018-01-13] MEDS: Furosemide 20 MG Tablet PO SCH (16:43)
[2018-01-13] MEDS: Senna/Docusate Sodium 8.6/50 MG Tablet PO SCH ×2 (16:44→21:10)
[2018-01-13] MEDS: Famotidine 20 MG Tablet PO SCH ×2 (16:44→21:10)
--- NOTE | 2018-01-14 03:55 | XR ---
EXAM DATE: 01/14/2018 3:50 AM EDT AGE/SEX: 57 years / Female INDICATIONS: . Short of breath. CLINICAL DATA: This is the patient's subsequent encounter. Patient reports that signs and symptoms h ave been present for 4 - 6 days and indicates a pain score of 3/10. MEDICAL/SURGICAL HISTORY: Carcinoma, breast. Mastectomy, left. COMPARISON: [facility], CHEST 1V SINGLE AP, 01/13/2018. . FINDINGS: Cardiomegaly with mild basilar airspace disease and small bilateral pleural effusions. Left central l ine in superior vena cava. No pneumothorax. CONCLUSION: Mild basilar airspace disease and small effusions. Left central line in superior vena cava. Electronically signed by: Beau Guadarrama MD 01/14/2018 3:54 AM EDT
[2018-01-14 06:08] LABS: Hematocrit 44.6 % (35.0-46.0); Hemoglobin 15.1 gm/dL (11.6-15.3); Mean Corpuscular HGB Conc 33.7 % (32.0-36.0); Mean Corpuscular Hemoglobin 32.2 pg (27.0-34.0); Mean Corpuscular Volume 95.3 fL (80.0-100.0); Mean Platelet Volume 6.5 fL (7.0-11.0); Platelet Count 489 th/mm3 (150-450); Red Blood Count 4.68 mil/mm3 (4.00-5.30); Red Cell Distribution Width 15.9 % (11.6-17.2); White Blood Count 8.2 th/mm3 (4.0-11.0)
[2018-01-14 06:33] LABS: Albumin 2.8 g/dL (3.4-5.0); Anion Gap 12 meq/L (5-15); Aspartate Aminotransferase 42 U/L (15-37); Blood Urea Nitrogen 17 mg/dL (7-18); Carbon Dioxide 26.4 meq/L (21.0-32.0); Chloride 102 meq/L (98-107); Glomerular Filtration Rate Greater Than 89 mL/min (>89); Glucose,Random 96 mg/dL (74-106); Magnesium 2.1 mg/dL (1.5-2.5); Potassium 3.7 meq/L (3.5-5.1); Sodium 140 meq/L (136-145)
[2018-01-14 06:34] LABS: Alanine Aminotransferase 32 U/L (10-53)
[2018-01-14 06:38] LABS: Alkaline Phosphatase 165 U/L (45-117); Total Protein 7.2 g/dL (6.4-8.2)
[2018-01-14 09:50] VITALS: RESP 19; TEMP 98
[2018-01-14] MEDS: Famotidine 20 MG Tablet PO SCH (09:51)
[2018-01-14] MEDS: Furosemide 20 MG Tablet PO SCH (09:51)
[2018-01-14] MEDS: Senna/Docusate Sodium 8.6/50 MG Tablet PO SCH (09:53)
[2018-01-14] MEDS: Spironolactone 25 MG Tablet PO SCH (10:00)
--- NOTE | 2018-01-14 10:44 | P.PN ---
Physical Exam Vital signs: Vital Signs 01/13/18 12:00 01/13/18 14:00 01/13/18 16:00 Temperature 97.9 F 98 F Pulse Rate 95 H 90 90 Respiratory Rate 29 H 26 H Blood Pressure 134/83 119/80 Pulse Oximetry 97 96 01/13/18 18:00 01/13/18 18:05 01/13/18 20:59 Temperature 98.3 F 98.2 F Pulse Rate 98 H 98 H 91 H Respiratory Rate 16 17 Blood Pressure 113/84 115/86 Pulse Oximetry 99 99 01/14/18 00:00 01/14/18 01:00 01/14/18 02:07 Temperature 97.9 F Pulse Rate 86 97 H 91 H Respiratory Rate 16 Blood Pressure 119/80 Pulse Oximetry 97 01/14/18 03:00 01/14/18 03:41 01/14/18 04:00 Temperature 97.8 F Pulse Rate 93 H 98 H 68 Respiratory Rate 20 Blood Pressure 128/87 Pulse Oximetry 98 01/14/18 05:00 01/14/18 06:00 01/14/18 07:00 Temperature 98 F Pulse Rate 72 95 H 106 H Respiratory Rate 19 Blood Pressure 110/84 Pulse Oximetry 97 Intake & Output 01/13/18 01/14/18 01/14/18 18:59 06:59 18:59 Intake Total 700 / 700 720 / 720 Output Total 1250 / 1250 300 / 300 Balance -550 / -550 420 / 420 Weight 44.9 kg Intake: IV 275 / 275 Heparin/NS PF Inj 500 ML @ 0 75 / 75 mls/hr .ROUTE .STK-MED ONE Rx#: [id number] KCl 40 mEq Premix Inj 40 meq In 100 / 100 100 ml @ 25 mls/hr IV.SIG UNSCH PRN Rx#:[id number] Rocephin Inj 2,000 MG In NS Inj 100 / 100 100 ML @ 200 mls/hr IV.SIG Q24H ARIAN Rx#:[id number] Oral 425 / 425 720 / 720 Output: Urine 200 / 200 300 / 300 Pleural Fluid 550 / 550 Urine Amount (Catheter) 500 / 500 Indwelling Urethral Catheter 500 / 500 Other: # Voids 1 Weight On Admission 44 kg Narrative: F/up hyponatremia, respiratory failure, pulmonary edema, congestive heart failure, cardiomyopathy The patient is ambulating in the room says she feels much better and she will like to go home and not to nursing home facility. Denies any shortness of breath she is saturating well on room air. No nausea vomiting no diarrhea or constipation. No chest pain, palpitations, lightheadedness. Physical exam: GENERAL: Middle-age female, lying in bed HEENT: Normocephalic. Atraumatic. Pupils equal, round, reactive, conjugate. NECK: Trachea is midline. JVD improving. CHEST: Decreased breath sounds left base. Bedside ultrasound shows moderate left pleural effusion with debris CARDIOVASCULAR: S1-S2 normal no murmurs. EF approximately 15-20% ABDOMEN: Soft, nontender, nondistended. No guarding. MUSCULOSKELETAL: Pulses 2+. Anasarca + NEUROLOGICAL: Alert awake oriented. No focal deficits Assessment and Plan Assessment: 57-year-old female with acute systolic CHF exacerbation, (EF 20%) which is severe with associated severe life-threatening hypervolemic hyponatremia, severe acute hypoxic respiratory failure, severe multiorgan system dysfunction. With aggressive diuresis all of the above has improved and patient is compensated now. Resume losartan start sustained-release beta- lynette. Cardiology consult for further workup Plan by systems: Neurologic: Severe life-threatening hyponatremia-resolved Frequent neurochecks, seizure precautions Respiratory: Acute hypoxic respiratory failure-resolved Acute severe pulmonary edema Left more than right pleural effusions Extubated 01/12/2018 tolerating well Head of bed elevated Nebs Plan for thoracentesis today Cardiovascular: Severe acute systolic CHF exacerbation cardiomyopathy with ejection fraction 20% Left bundle branch block, QRS [address] Pierce will see him consult plan for cardiac cath ischemia workup Change Lasix to p.o., continue Aldactone, resume losartan 25 mg daily, add metoprolol succinate 12.5 mg daily. The left ventricular systolic function is severely reduced with an estimated ejection fraction less than 20%. EF 20%, QRS 190-after ischemia ischemia work up and evaluation for resynchronization therapy may be appropriate Renal: Continue Montano Lasix and Aldactone as above -- Strict I/Os FEN/GI: Severe life-threatening hyponatremia Severe hypokalemia Severe hypomagnesemia Severe acute protein calorie malnutrition Severe acute intravascular volume overload Diuresis as above Aggressive Electrolyte replacement Serial electrolytes Heart healthy diet Heme/ID: Leukocytosis Likely reactive and secondary to stress response No infectious etiology suspected this time. Follow up pleural fluid studies F/u blood cultures Endocrine: Hyperglycemia of critical illness -- SSI Prophylaxis: GI Prophylaxis Pepcid DVT Prophylaxis -- SCDs Lovenox Lines: 01/08 right radial arterial line-DCd 01/08 left subclavian triple-lumen catheter-we will discontinue after cardiac catheterization Montano Overall impression: Stabilizing from acute on chronic systolic heart failure. Patient with dilated cardiomyopathy. Cleared by Dr Sanabria for DC. Patient needs life vest however patient is refusing. Also patient doesn't want to go to SNF. Patient is however improving and abld to ambulate, Sys she has a walker at home. Wants to go home. - Urinary Catheter Management Indwelling Urethral Catheter Cath placed during this visit: yes, but has since been removed by the nurse Reason for continuing: Decision to DC catheter Insertion date: 01/08/18 Insertion time: 00:00 Removal date: 01/13/18 Removal time: 17:15 Results - Labs CBC & Chem 7: 01/14/18 05:13 01/14/18 05:13 Laboratory Results - last 24 hr 01/13/18 01/13/18 01/13/18 08:25 12:31 19:00 WBC RBC Hgb Hct MCV MCH MCHC RDW Plt Count MPV Sodium Potassium Chloride Carbon Dioxide Anion Gap BUN Creatinine Estimated GFR POC Glucose 92 122 H Random Glucose Calcium Magnesium Total Bilirubin AST ALT Alkaline Phosphatase Total Protein Albumin Pleural RBC 5466 H Pleural Nuc Cells 2439 H Pleural Neutrophils 79 Pleural Lymphocytes 10 Pleural Monocytes 2 Pleural Eosinophils 3 Pleural Histocytes 2 Pleural Mesothelial 4 01/14/18 01/14/18 01/14/18 00:58 05:13 05:13 WBC 8.2 RBC 4.68 Hgb 15.1 Hct 44.6 MCV 95.3 MCH 32.2 MCHC 33.7 RDW 15.9 Plt Count 489 H MPV 6.5 L Sodium 140 Potassium 3.7 Chloride 102 Carbon Dioxide 26.4 Anion Gap 12 BUN 17 Creatinine 0.46 L Estimated GFR Greater than 89 POC Glucose 91 Random Glucose 96 Calcium 10.0 Magnesium 2.1 Total Bilirubin 0.7 AST 42 H ALT 32 Alkaline Phosphatase 165 H Total Protein 7.2 Albumin 2.8 L Pleural RBC Pleural Nuc Cells Pleural Neutrophils Pleural Lymphocytes Pleural Monocytes Pleural Eosinophils Pleural Histocytes Pleural Mesothelial 01/14/18 10:02 WBC RBC Hgb Hct MCV MCH MCHC RDW Plt Count MPV Sodium Potassium Chloride Carbon Dioxide Anion Gap BUN Creatinine Estimated GFR POC Glucose 195 H Random Glucose Calcium Magnesium Total Bilirubin AST ALT Alkaline Phosphatase Total Protein Albumin Pleural RBC Pleural Nuc Cells Pleural Neutrophils Pleural Lymphocytes Pleural Monocytes Pleural Eosinophils Pleural Histocytes Pleural Mesothelial Microbiology 01/13/18 08:25 Fluid - Pleural fluid Fungal Smear - Final No fungal elements seen 01/13/18 08:25 Fluid - Pleural fluid Gram Stain - Final 01/11/18 14:10 Blood - Peripheral Aerobic Blood Culture - Preliminary No growth in 2 days 01/11/18 14:10 Blood - Peripheral Anaerobic Blood Culture - Preliminary No growth in 2 days 01/11/18 14:05 Blood - Peripheral Aerobic Blood Culture - Preliminary No growth in 2 days 01/11/18 14:05 Blood - Peripheral Anaerobic Blood Culture - Preliminary No growth in 2 days - Imaging Impressions Chest X-Ray 01/14/18 06:00 CONCLUSION: Mild basilar airspace disease and small effusions. Left central line in superior vena cava. Procedures - Arterial Line Size (Gauge): 20
--- NOTE | 2018-01-14 10:52 | P.DS ---
Date of admission: 01/07/18 23:12 Primary care physician: Rupesh Johansen Brief History from admission: This is a 57-year-old female who presents with worsening respiratory distress and shortness of breath. She endorsed to the ER physician several days of cough and worsening shortness of breath, which was associated with dyspnea on exertion and PND. In the emergency department she was found to have severe life -threatening hyponatremia with a serum sodium of 109. She additionally had a BNP elevated at 2200. She has severe electrolyte abnormalities including hypokalemia with potassium less than 3. Due to concerns over rapid overcorrection, she was very gently initially diuresed with 25 mill grams of p.o. spironolactone and 20 mg of IV Lasix in addition to aggressive electrolyte replacement. However, the patient deteriorated from a restaurant standpoint and was placed initially on BiPAP but went into worsening respiratory failure requiring emergent intubation, see separate procedure note for details. Due to her rapid deterioration, increased aggressive force diuresis was required despite the high risk of rapid overcorrection of sodium. Additionally, free water is absolutely contraindicated in this degree of worsening heart failure, so we have no way of mitigating her rapid sodium rise. I did perform bedside critical care ultrasound which demonstrates a severely depressed LV systolic function less than 20%, no pericardial effusion. Significant left pleural effusion, but again this was not intervened upon given concern for rapid removal of free water and rapid overcorrection of hyponatremia. Remainder of the history and review of systems is unobtainable due to her critical illness and rapid deterioration. DS: Medications - Discharge Medications Prescriptions: aspirin 81 mg PO DAILY #30 tab furosemide 20 mg PO DAILY 30 Days #30 tab metoprolol succinate 12.5 mg PO DAILY 30 Days #15 tab potassium chloride 10 meq PO DAILY #30 cap spironolactone [Aldactone] 25 mg PO BID@0900,1800 #60 tab DS: Summary Hospital Course: Assessment and Plan 57-year-old female with acute systolic CHF exacerbation, (EF 20%) which is severe with associated severe life-threatening hypervolemic hyponatremia, severe acute hypoxic respiratory failure, severe multiorgan system dysfunction. With aggressive diuresis all of the above has improved and patient is compensated now. Resume losartan start sustained-release beta-lynette. Cardiology consult for further workup. Patient is cleared by cardiology Dr Elly fro DC. To follow up as Op with PCP and consultants. Patient to have follow up as OP wit PCP and to follow up results of cytology Plan by systems: Neurologic: Severe life-threatening hyponatremia-resolved Frequent neurochecks, seizure precautions Respiratory: Acute hypoxic respiratory failure-resolved Acute severe pulmonary edema. Resolving Left more than right pleural effusions Extubated 01/12/2018 tolerating well Nebs S/p thoracentesis. Cultures neg so far Blood cultures also neg to date Patient to follow up as OP with PCP and to follow up results of cyto Cardiovascular: Severe acute systolic CHF exacerbation cardiomyopathy with ejection fraction 20% Left bundle branch block, QRS [address] Pierce will see him consult plan for cardiac cath ischemia workup Change Lasix to p.o., continue Aldactone, resume losartan 25 mg daily, add metoprolol succinate 12.5 mg daily. The left ventricular systolic function is severely reduced with an estimated ejection fraction less than 20%. EF 20%, QRS 190-after ischemia ischemia work up and evaluation for resynchronization therapy may be appropriate Renal: Continue Montano Lasix and Aldactone as above -- Strict I/Os FEN/GI: Severe life-threatening hyponatremia Severe hypokalemia Severe hypomagnesemia Severe acute protein calorie malnutrition Severe acute intravascular volume overload Diuresis as above Aggressive Electrolyte replacement Serial electrolytes Heart healthy diet Heme/ID: Leukocytosis Likely reactive and secondary to stress response No infectious etiology suspected this time. Follow up pleural fluid studies F/u blood cultures Endocrine: Hyperglycemia of critical illness -- SSI Prophylaxis: GI Prophylaxis Pepcid DVT Prophylaxis -- SCDs Lovenox Lines: 01/08 right radial arterial line-DCd 01/08 left subclavian triple-lumen catheter-we will discontinue after cardiac catheterization Montano Overall impression: Stabilizing from acute on chronic systolic heart failure. Patient with dilated cardiomyopathy. Cleared by Dr Sanabria for DC. Patient needs life vest however patient is refusing. Also patient doesn't want to go to SNF. Patient is however improving and abld to ambulate, Says she has a walker at home. DC in stable condition to follow up as OP - Time Spent with Patient Total time spent providing and/or coordinating discharge services: Greater than 30 minutes Exam Vital signs: Vital Signs 01/13/18 12:00 01/13/18 14:00 01/13/18 16:00 Temperature 97.9 F 98 F Pulse Rate 95 H 90 90 Respiratory Rate 29 H 26 H Blood Pressure 134/83 119/80 Pulse Oximetry 97 96 01/13/18 18:00 01/13/18 18:05 01/13/18 20:59 Temperature 98.3 F 98.2 F Pulse Rate 98 H 98 H 91 H Respiratory Rate 16 17 Blood Pressure 113/84 115/86 Pulse Oximetry 99 99 01/14/18 00:00 01/14/18 01:00 01/14/18 02:07 Temperature 97.9 F Pulse Rate 86 97 H 91 H Respiratory Rate 16 Blood Pressure 119/80 Pulse Oximetry 97 01/14/18 03:00 01/14/18 03:41 01/14/18 04:00 Temperature 97.8 F Pulse Rate 93 H 98 H 68 Respiratory Rate 20 Blood Pressure 128/87 Pulse Oximetry 98 01/14/18 05:00 01/14/18 06:00 01/14/18 07:00 Temperature 98 F Pulse Rate 72 95 H 106 H Respiratory Rate 19 Blood Pressure 110/84 Pulse Oximetry 97 Intake & Output 01/13/18 01/14/18 01/14/18 18:59 06:59 18:59 Intake Total 700 / 700 720 / 720 Output Total 1250 / 1250 300 / 300 Balance -550 / -550 420 / 420 Weight 44.9 kg Intake: IV 275 / 275 Heparin/NS PF Inj 500 ML @ 0 75 / 75 mls/hr .ROUTE .STK-MED ONE Rx#: [id number] KCl 40 mEq Premix Inj 40 meq In 100 / 100 100 ml @ 25 mls/hr IV.SIG UNSCH PRN Rx#:[id number] Rocephin Inj 2,000 MG In NS Inj 100 / 100 100 ML @ 200 mls/hr IV.SIG Q24H ARIAN Rx#:[id number] Oral 425 / 425 720 / 720 Output: Urine 200 / 200 300 / 300 Pleural Fluid 550 / 550 Urine Amount (Catheter) 500 / 500 Indwelling Urethral Catheter 500 / 500 Other: # Voids 1 Weight On Admission 44 kg Narrative: GENERAL: Middle-age female, lying in bed HEENT: Normocephalic. Atraumatic. Pupils equal, round, reactive, conjugate. NECK: Trachea is midline. JVD improving. CHEST: Decreased breath sounds left base. Bedside ultrasound shows moderate left pleural effusion with debris CARDIOVASCULAR: S1-S2 normal no murmurs. EF approximately 15-20% ABDOMEN: Soft, nontender, nondistended. No guarding. MUSCULOSKELETAL: Pulses 2+. Anasarca + NEUROLOGICAL: Alert awake oriented. No focal deficits Results Procedures completed during hospitalization: paracentesis Pending studies at discharge: Pending at discharge 01/13/18 07:41 Cytology [PTH] Routine Labs on day of discharge: Labs from last 24 hours 01/14/18 01/14/18 01/14/18 10:02 05:13 05:13 WBC 8.2 RBC 4.68 Hgb 15.1 Hct 44.6 MCV 95.3 MCH 32.2 MCHC 33.7 RDW 15.9 Plt Count 489 H MPV 6.5 L Sodium 140 Potassium 3.7 Chloride 102 Carbon Dioxide 26.4 Anion Gap 12 BUN 17 Creatinine 0.46 L Estimated GFR Greater than 89 POC Glucose 195 H Random Glucose 96 Calcium 10.0 Magnesium 2.1 Total Bilirubin 0.7 AST 42 H ALT 32 Alkaline Phosphatase 165 H Total Protein 7.2 Albumin 2.8 L 01/14/18 01/13/18 01/13/18 00:58 19:00 12:31 WBC RBC Hgb Hct MCV MCH MCHC RDW Plt Count MPV Sodium Potassium Chloride Carbon Dioxide Anion Gap BUN Creatinine Estimated GFR POC Glucose 91 122 H 92 Random Glucose Calcium Magnesium Total Bilirubin AST ALT Alkaline Phosphatase Total Protein Albumin Preliminary micro results at discharge 01/11/18 14:10 Aerobic Blood Culture - Preliminary Blood - Peripheral No growth in 2 days Anaerobic Blood Culture - Preliminary No growth in 2 days 01/11/18 14:05 Aerobic Blood Culture - Preliminary Blood - Peripheral No growth in 2 days Anaerobic Blood Culture - Preliminary No growth in 2 days - Impressions ITS Impressions Chest X-Ray 01/14/18 06:00 CONCLUSION: Mild basilar airspace disease and small effusions. Left central line in superior vena cava. Discharge Plan - Discharge Disposition Patient Disposition: 01 Discharge Home - Discharge Condition Condition: Stable - Discharge Order Discharge Orders: Discharge Order (Routine); Ordered 01/14/18 Ordered By: Jasmin Sevilla Cardiology Clear for Discharge (Routine); Ordered 01/14/18 Ordered By: Bud Pierce - Discharge Details Anticipated Discharge Date: 01/14/18 - Physicians Team Primary Care Provider: Rupesh Johansen Attending Provider: Jasmin Sevilla Other Providers: Bud Pierce DO ; Katrina Herron MD
--- NOTE | 2018-01-14 10:53 | P.DCO ---
- Physical Therapy Order: Evaluate and treat - Home Health Nursing Order: Medical education, Signs/symptoms of disease process, Medication education-adverse effect, Nursing assessment with vital signs - Certification I have seen patient Whitley Hayes on 01/14/18. My clinical findings support the need for the requested home health care services because: Limited mobility due to disease progression, Patient has SOB I certify that my clinical findings support that this patient is homebound because: Post-op weakness
--- NOTE | 2018-01-14 13:19 | P.PNCA ---
Subjective Interval history: No events overnight Doing great, no complaints Physical Exam Vital signs: Vital Signs 01/13/18 14:00 01/13/18 16:00 01/13/18 18:00 Temperature 98 F Pulse Rate 90 90 98 H Respiratory Rate 26 H Blood Pressure 119/80 Pulse Oximetry 96 01/13/18 18:05 01/13/18 20:59 01/14/18 00:00 Temperature 98.3 F 98.2 F 97.9 F Pulse Rate 98 H 91 H 86 Respiratory Rate 16 17 16 Blood Pressure 113/84 115/86 119/80 Pulse Oximetry 99 99 97 01/14/18 01:00 01/14/18 02:07 01/14/18 03:00 Temperature Pulse Rate 97 H 91 H 93 H Respiratory Rate Blood Pressure Pulse Oximetry 01/14/18 03:41 01/14/18 04:00 01/14/18 05:00 Temperature 97.8 F Pulse Rate 98 H 68 72 Respiratory Rate 20 Blood Pressure 128/87 Pulse Oximetry 98 01/14/18 06:00 01/14/18 07:00 Temperature 98 F Pulse Rate 95 H 106 H Respiratory Rate 19 Blood Pressure 110/84 Pulse Oximetry 97 Intake & Output 01/13/18 01/14/18 01/14/18 18:59 06:59 18:59 Intake Total 700 / 700 720 / 720 Output Total 1250 / 1250 300 / 300 Balance -550 / -550 420 / 420 Weight 44.9 kg Intake: IV 275 / 275 Heparin/NS PF Inj 500 ML @ 0 75 / 75 mls/hr .ROUTE .STK-MED ONE Rx#: [id number] KCl 40 mEq Premix Inj 40 meq In 100 / 100 100 ml @ 25 mls/hr IV.SIG UNSCH PRN Rx#:[id number] Rocephin Inj 2,000 MG In NS Inj 100 / 100 100 ML @ 200 mls/hr IV.SIG Q24H ARIAN Rx#:[id number] Oral 425 / 425 720 / 720 Output: Urine 200 / 200 300 / 300 Pleural Fluid 550 / 550 Urine Amount (Catheter) 500 / 500 Indwelling Urethral Catheter 500 / 500 Other: # Voids 1 Weight On Admission 44 kg Narrative: GENERAL: NAD, AAOx3 SKIN: Warm and dry. HEAD: Atraumatic. Normocephalic. EYES: Pupils equal and round. No scleral icterus. No injection or drainage. ENT: No nasal bleeding or discharge. Mucous membranes pink and moist. NECK: Trachea midline. No JVD. CARDIOVASCULAR: Regular rate and rhythm. RESPIRATORY: No accessory muscle use. Clear to auscultation. Breath sounds equal bilaterally. GASTROINTESTINAL: Abdomen soft, non-tender, nondistended. Hepatic and splenic margins not palpable. MUSCULOSKELETAL: Extremities without clubbing, cyanosis, or edema. No obvious deformities. Right femoral, no hematoma, neurovascularly intact NEUROLOGICAL: Awake and alert. No obvious cranial nerve deficits. Motor grossly within normal limits. Five out of 5 muscle strength in the arms and legs. Normal speech. PSYCHIATRIC: Appropriate mood and affect; insight and judgment normal. - Urinary Catheter Management Indwelling Urethral Catheter Cath placed during this visit: yes, but has since been removed by the nurse Reason for continuing: Decision to DC catheter Insertion date: 01/08/18 Insertion time: 00:00 Removal date: 01/13/18 Removal time: 17:15 Assessment and Plan - Assessment (1) NICM (nonischemic cardiomyopathy) Code(s): I42.8 - Other cardiomyopathies Status: Acute (2) SOB (shortness of breath) Code(s): R06.02 - Shortness of breath Status: Acute (3) Acute decompensated heart failure Code(s): I50.9 - Heart failure, unspecified Status: Acute (4) Acute hyponatremia Code(s): E87.1 - Hypo-osmolality and hyponatremia Status: Acute (5) Acute respiratory distress Code(s): R06.03 - Acute respiratory distress Status: Acute - Plan 1) Acute decompensated systolic heart failure Since has been diuresed Appears overall well compensated, RHC with normal filling pressures Sodium level has normalized 2) New onset NICM EF 20% Cath showing no significant CAD Possible ETOH induced Pt plans on quitting ETOH Doubt viral induced Discussed consideration of HIV testing, but patient feels she's low risk 3) Con't on heart failure medications including Toprol/Spironolactone/Losartan 4) Attempting to get Lifevest 5) Needs repeat echo in 3 months to evaluate LV function on OMT If EF low then consideration of ICD 6) Cardiovascularly stable for discharge Will have Lifevest fit at home Will call insurance to see which spout liner follows her insurance in the area Procedures - Arterial Line Size (Gauge): 20
[2018-01-14 14:05] VITALS: BP 120/71; O2SAT 98
[2018-01-14 14:12] VITALS: PULSE 101
== END 2018-01-14 14:56 | disposition home or self-care (01) ==
LOC: NEPC 20:48 → NEDA 23:32 → N03 01-08 03:06 → HCIS 01-13 17:55
PROVIDERS: ADMIT Hospitalist; ATTEND Hospitalist
DX: G93.41 Metabolic encephalopathy; I50.21 Acute systolic (congestive) heart failure; Z72.0 Tobacco use; R73.9 Hyperglycemia, unspecified; E43 Unspecified severe protein-calorie malnutrition; I42.9 Cardiomyopathy, unspecified; F10.10 Alcohol abuse, uncomplicated; J90 Pleural effusion, not elsewhere classified; Z85.3 Personal history of malignant neoplasm of breast; E87.1 Hypo-osmolality and hyponatremia; E83.42 Hypomagnesemia; E87.6 Hypokalemia; J96.01 Acute respiratory failure with hypoxia